=== PATIENT | male | born 1930 | race Caucasian/White ===

== ENCOUNTER 2016-10-23 13:37 | Inpatient (IN) | payer MEDICARE ==
[2016-10-23] VITALS (12 sets, daily range): BP systolic 90–109; BP diastolic 53–69; PULSE 68–137; RESP 20; TEMP 96.4–98.7; O2SAT 94–98
[~2016-10-23 13:37] MED LIST: ATOR10TA PO; DILT31TA PO; IPRA0.02 NEB; LEVO88TA2 PO; LYRI150C PO; METH5SOL3 PO; MUCI600T PO; PARO1TAB72 PO; SPIRCAP INH; ST J81CH PO; SYMB80AE INH
[2016-10-23] MEDS ORDERED: BISA1TAB2 PO (13:49)
[2016-10-23] MEDS ORDERED: BUDE0.5S NEB (13:49)
[2016-10-23] MEDS ORDERED: LYRI50CA PO (13:49)
[2016-10-23] MEDS ORDERED: DILT30TA PO (13:49)
[2016-10-23] MEDS ORDERED: ATOR10TA15 PO (13:49)
[2016-10-23] MEDS ORDERED: SYMB80AE INH (13:49)
[2016-10-23] MEDS ORDERED: ASPI81CH CHEW (13:49)
[2016-10-23] MEDS ORDERED: FEXO1TAB41 PO (13:49)
[2016-10-23] MEDS ORDERED: LEVO88TA2 PO (13:49)
[2016-10-23] MEDS ORDERED: METH5TAB PO (13:49)
[2016-10-23] MEDS ORDERED: PARO20TA2 PO (13:49)
[2016-10-23] MEDS ORDERED: IPRA0.02 NEB (13:49)
[2016-10-23] MEDS ORDERED: SPIRCAP INH (13:49)
[2016-10-23] MEDS ORDERED: SODIUM CHLORIDE 0.9% FLUSH 10 ML FLUSH IVF PRN (14:00)
--- NOTE | 2016-10-23 14:09 | PD ---
HPI Chief Complaint: Respiratory Symptoms Time Seen by Provider: 13:51 Travel History International Travel<30 days: No Contact w/Intl Traveler<30days: No Traveled to known affect area: No History of Present Illness HPI This is an 86-year-old male who has a history of COPD who presents to the emergency department having been found to be in respiratory distress at his [facility]. He was cyanotic with an oxygen saturation in the 70s. He was given thiamine and round by EMS and given 2 breathing treatments and his symptoms improved significantly. Patient reports that he's been short of breath "for a while", for at least the past month, associated with a productive cough with yellow sputum, moderate severity. He uses oxygen at night but not during the daytime. His son has been trying to get him into a pulmonary doctor but he is not established with one yet. He denies any chest pain and he's not been ill with viral symptoms like rhinorrhea, sore throat or chills. PFSH Past Medical History Arthritis: Yes Asthma: No Atrial Fibrillation: Yes (NEW ONSET 11/2013) Autoimmune Disease: No Anxiety: Yes Depression: No Cancer: Yes (PROSTATE CANCER) Cardiac Catheterization: Yes Cardiovascular Problems: Yes (STENT) High Cholesterol: Yes Chemotherapy: No Chest Pain: No Congestive Heart Failure: No COPD: Yes Cerebrovascular Accident: No Coronary Artery Disease: Yes Diabetes: No Diminished Hearing: Yes (AIDE DOESNT WEAR) Endocrine: No GERD: No Genitourinary: Yes Hiatal Hernia: No Immune Disorder: No Kidney Stones: No Musculoskeletal: Yes (LEFT LEG WEAKNESS) Neurologic: No Psychiatric: No Reproductive: No Respiratory: Yes Migraines: No Radiation Therapy: No Renal Failure: No 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) Sickle Cell Disease: No Sleep Apnea: No Thyroid Disease: Yes Ulcer: No Past Surgical History AICD: No Arteriovenous Shunt: No Coronary Stent: Yes Insulin Pump: No Joint Replacement: No Pacemaker: No Other Surgery: Yes (PROSTATE REMOVAL) Social History Alcohol Use: No (QUIT 20 YEARS AGO ) Tobacco Use: Yes (10CIG/DAY) Substance Use: No Allergies-Medications (Allergen,Severity, Reaction): Coded Allergies: Penicillin (Verified Allergy, Severe, A CHILD, 10/23/16) Procaine (Verified Allergy, Unknown, 10/23/16) Uncoded Allergies: BENZATHIN (Allergy, Unknown, 10/23/16) Reported Meds & Prescriptions Reported Meds & Active Scripts Active Azithromycin 250 Mg Tab 250 Mg PO DIRECTED Take 2 tabs (500 mg) on day 1 then 1 tab daily x 4 days. Prednisone 20 Mg Tab 40 Mg PO DAILY 4 Days Reported Lyrica (Pregabalin) 50 Mg Cap 50 Mg PO TID Paroxetine (Paroxetine HCl) 20 Mg Tab 20 Mg PO DAILY Symbicort Inh (Budesonide/Formoterol Fumarate) 80-4.5 Mcg/Act Aero 1 Puff INH Q12HR Atorvastatin (Atorvastatin Calcium) 10 Mg Tab 10 Mg PO HS Methadone (Methadone HCl) 5 Mg Tab 2.5 Mg PO HS Ipratropium Neb (Ipratropium [place]) 0.5 Mg/2.5 Ml Amp 0.5 Mg NEB Q12HR NEB Mucinex Allergy (Fexofenadine HCl) 180 Mg Tab 600 Mg PO BID Eq Gentle Laxative (Bisacodyl) 5 Mg Tab 15 Mg PO DAILY PRN Spiriva Handihaler (Tiotropium Inh) 18 Mcg Cap 18 Mcg INH DAILY 1 capsule = 18 mcg Budesonide Neb 0.5 Mg/2 Ml Neb 0.5 Mg NEB BID Levothyroxine (Levothyroxine Sodium) 88 Mcg Tab 88 Mcg PO DAILY Diltiazem (Diltiazem HCl) 30 Mg Tab 30 Mg PO BID Aspirin 81 Mg Chew 81 Mg CHEW DAILY Review of Systems Except as stated in HPI: all other systems reviewed are Neg Physical Exam Narrative GENERAL: Frail elderly male in no acute distress. SKIN: Warm and dry. HEAD: Atraumatic. Normocephalic. EYES: Pupils equal and round. No injection or drainage. ENT: Moist mucous membranes NECK: Trachea midline. CARDIOVASCULAR: Regular rate and rhythm. No murmur appreciated. RESPIRATORY: Diffuse wheezing with poor air movement, prolonged expiratory phase GASTROINTESTINAL: Abdomen soft, non-tender, nondistended. MUSCULOSKELETAL: No obvious deformities. NEUROLOGICAL: Awake and alert. No obvious cranial nerve deficits. Moving all extremities. PSYCHIATRIC: Appropriate mood and affect; insight and judgment normal. Data Data Last Documented VS Vital Signs Date Time Temp Pulse Resp B/P Pulse Ox O2 Delivery O2 Flow Rate FiO2 10/23/16 15:29 121 20 91/65 95 10/23/16 14:21 Nasal Cannula 2.00 10/23/16 13:39 98.7 Orders Complete Blood Count With Diff (10/23/16 13:58) Comprehensive Metabolic Panel (10/23/16 13:58) Iv Access Insert/Monitor (10/23/16 13:58) Ecg Monitoring (10/23/16 13:58) Oximetry (10/23/16 13:58) Oxygen Administration (10/23/16 13:58) Chest, Single Ap (10/23/16 13:58) Sodium Chloride 0.9% Flush (Ns Flush) (10/23/16 14:00) Albuterol Neb (Albuterol Neb) (10/23/16 14:00) Diltiazem Inj (Cardizem Inj) (10/23/16 15:30) Sodium Chlorid 0.9% 500 Ml Inj (Ns 500 M (10/23/16 15:30) Troponin I (10/23/16 15:30) B-Type Natriuretic Peptide (10/23/16 15:30) Diltiazem Inj (Cardizem Inj) (10/23/16 16:15) Admit Order (Ed Use Only) (10/23/16 16:11) Labs Laboratory Tests Test 10/23/16 14:05 White Blood Count 4.9 TH/MM3 Red Blood Count 4.01 MIL/MM3 Hemoglobin 11.9 GM/DL Hematocrit 36.5 % Mean Corpuscular Volume 91.1 FL Mean Corpuscular Hemoglobin 29.8 PG Mean Corpuscular Hemoglobin 32.7 % Concent Red Cell Distribution Width 13.5 % Platelet Count 114 TH/MM3 Mean Platelet Volume 7.9 FL Neutrophils (%) (Auto) 74.5 % Lymphocytes (%) (Auto) 14.1 % Monocytes (%) (Auto) 10.4 % Eosinophils (%) (Auto) 0.5 % Basophils (%) (Auto) 0.5 % Neutrophils # (Auto) 3.7 TH/MM3 Lymphocytes # (Auto) 0.7 TH/MM3 Monocytes # (Auto) 0.5 TH/MM3 Eosinophils # (Auto) 0.0 TH/MM3 Basophils # (Auto) 0.0 TH/MM3 CBC Comment DIFF FINAL Differential Comment Sodium Level 142 MEQ/L Potassium Level 4.1 MEQ/L Chloride Level 106 MEQ/L Carbon Dioxide Level 26.6 MEQ/L Anion Gap 9 MEQ/L Blood Urea Nitrogen 22 MG/DL Creatinine 0.88 MG/DL Estimat Glomerular Filtration 82 ML/MIN Rate Random Glucose 88 MG/DL Calcium Level 8.4 MG/DL Total Bilirubin 0.6 MG/DL Aspartate Amino Transf 18 U/L (AST/SGOT) Alanine Aminotransferase 14 U/L (ALT/SGPT) Alkaline Phosphatase 82 U/L Troponin I LESS THAN 0.02 NG/ML B-Type Natriuretic Peptide 290 PG/ML Total Protein 6.2 GM/DL Albumin 3.0 GM/DL MDM Medical Decision Making Medical Screen Exam Complete: Yes Emergency Medical Condition: Yes Interpretation(s) Afebrile, no tachycardia, normotensive Mild anemia Mild thrombocytopenia Electrolytes are reassuring Chest x-ray: Small area of nodularity in the right medial lobe requires outpatient CT Differential Diagnosis COPD exacerbation, pneumonia, pleural effusion, bronchitis, pulmonary embolism Narrative Course This is an 86-year-old male who has a history of COPD who wears oxygen in the evenings who presents to the emergency department with increasing shortness of breath and productive cough that's been going on for 1 month with an episode of hypoxia at his assisted living facility. On arrival he was 86% on room air but breathing very comfortably. He is diffusely wheezing. He was given 3 albuterol treatments. Labs are all reassuring. I was hopeful to discharge the patient on 2 L of oxygen however he went into a rapid heart rate in the 150s to 160s. I ordered an EKG which demonstrated atrial fibrillation with rapid ventricular response. Patient was given 10 mg of IV diltiazem and his heart rate improved into the 110s. His blood pressure is in the 90s systolic with a map of 70. I put the patient on diltiazem drip. Patient does have a history of atrial fibrillation in the past noted in 2013. Given the patient's poor rate control in the setting of bronchodilators and his new oxygen requirement I think it's reasonable to admit him for continued pulmonary and cardiac management. Critical Care Narrative Aggregate critical care time was 35 minutes. Time to perform other separately billable procedures was not included in the critical care time. My time did not include minutes spent treating any other patients simultaneously or on activities that did not directly contribute to the patient's treatment. The services I provided to this patient were to treat and/or prevent clinically significant deterioration that could result in: disability, I provided critical care services requiring my management, as noted below: Chart data review, documentation time, medication orders and management, vital sign assessments/reviewing monitor data, ordering and reviewing lab tests, ordering and interpreting/reviewing x-rays and diagnostic studies, care of the patient and discussion of the patient with the admitting physicians. Physician Communication Physician Communication Discussed with Dr. Mabry Diagnosis Primary Impression: COPD exacerbation Admitting Information Admitting Physician Requests: Admit Referrals: Salvador Calderon MD Patient Instructions: General Instructions Additional Instructions: If you develop severe shortness of breath, chest pain, or difficulty breathing return to the emergency department. Stay on your 2 L of oxygen until your symptoms improved. Use albuterol every 4 hours for the next 2 days. Then use as needed for wheezing. Complete your course of steroids. Complete your course of antibiotics. Follow-up with a pulmonary doctor as soon as possible. YOU HAVE AN AREA OF NODULARITY INVOLVING THE MEDIAL RIGHT LOWER LOBE. THIS SHOULD BE FOLLOWED UP BY A CT SCAN AN OUTPATIENT. Med/Other Pt SpecificInfo: Prescription(s) given Scripts Azithromycin 250 Mg Otg114 Mg PO DIRECTED #6 TAB Take 2 tabs (500 mg) on day 1 then 1 tab daily x 4 days. Prov:Therese Cifuentes MD 10/23/16 Prednisone 20 Mg Tab40 Mg PO DAILY 4 Days Prov:Therese Cifuentes MD 10/23/16 Disposition: 01 DISCHARGE HOME Condition: Stable Therese Cifuentes MD Oct 23, 2016 14:09
[2016-10-23 14:15] LABS: AUTOMATED NEUTROPHIL # 3.7 TH/MM3 (1.8-7.7); BASOPHIL % 0.5 % (0.0-2.0); EOSINOPHIL % 0.5 % (0.0-4.0); HEMATOCRIT 36.5 % (39.0-51.0); HEMO FLAGS DIFF FINAL; LYMPH % 14.1 % (9.0-44.0); LYMPHOCYTE # 0.7 TH/MM3 (1.0-4.8); MEAN CELL VOLUME 91.1 FL (80.0-100.0); MEAN CORPUSCULAR HEMOGLOBIN 29.8 PG (27.0-34.0); MEAN CORPUSCULAR HGB CONC 32.7 % (32.0-36.0); MONO % 10.4 % (0.0-8.0); NEUT % 74.5 % (16.0-70.0); PLATELET COUNT 114 TH/MM3 (150-450); RED BLOOD COUNT 4.01 MIL/MM3 (4.50-5.90); RED CELL DISTRIBUTION WIDTH 13.5 % (11.6-17.2); WHITE BLOOD COUNT 4.9 TH/MM3 (4.0-11.0)
[2016-10-23] MEDS: RESP: ALBUTEROL 2.5 MG/3 ML NEB (SCH) INH (14:18)
[2016-10-23 14:26] LABS: CHLORIDE 106 MEQ/L (98-107); POTASSIUM 4.1 MEQ/L (3.5-5.1); SODIUM (NA) 142 MEQ/L (136-145)
[2016-10-23 14:33] LABS: ANION GAP 9 MEQ/L (5-15); BICARBONATE 26.6 MEQ/L (21.0-32.0); BLOOD UREA NITROGEN 22 MG/DL (7-18)
[2016-10-23 14:36] LABS: AST (GOT) 18 U/L (15-37); GLOMERULAR FILTRATION RATE 82 ML/MIN (>89)
[2016-10-23 14:37] LABS: TOTAL BILIRUBIN ADULT 0.6 MG/DL (0.2-1.0)
[2016-10-23 14:39] LABS: ALKALINE PHOSPHATASE 82 U/L (45-117)
--- NOTE | 2016-10-23 14:40 | RADHPO ---
EXAM DATE/TIME: 10/23/2016 14:04 [facility] COMPARISON: CHEST SINGLE AP, April 05, 2016, 13:41. INDICATIONS : Short of breath. MEDICAL HISTORY : Hypercholesterolemia. Carcinoma, prostatic. Emphysema. CAD. A-fib. COPD. Arthritis. SURGICAL HISTORY : Cardiac cath w/ stent placement. Back surgeries. Prostate removal. ENCOUNTER: Initial ACUITY: 1 day PAIN SCORE: 0/10 LOCATION: chest FINDINGS: 2 portable frontal views of the chest show a nodular area of parenchymal density within the medial ri ght lung base. This is a new finding from the prior study. This measures approximately 3 cm in diamet er. The remaining lungs are clear. No effusions. Heart is normal in size. Bony structures are unremar kable. CONCLUSION: Small area of nodularity involving the medial right lower lobe. Differential diagnostic consideration s include rounded atelectasis, pulmonary mass, or developing infiltrate. Short term followup PA and l ateral views of the chest to document resolution versus further characterization with CT suggested. Angelo Escalante Jr., MD on October 23, 2016 at 14:37 Board Certified Radiologist. This report was verified electronically.
[2016-10-23 14:45] LABS: ALT (GPT) 14 U/L (12-78)
[2016-10-23] MEDS ORDERED: AZIT250T3 PO (15:12)
[2016-10-23] MEDS ORDERED: PRED20 PO (15:12)
[2016-10-23] MEDS ORDERED: SODIUM CHLORID 0.9% 500 ML INJ 500 ML IV ONE (15:30)
[2016-10-23] MEDS ORDERED: DILTIAZEM HCL 25 MG/5 ML VIAL IV ONE (15:30)
[2016-10-23] MEDS ORDERED: DILTIAZEM INJ 125 MG in SODIUM CHLORIDE 0.9% INJ 100 ML IV SCH (16:15)
[2016-10-23] MEDS: SODIUM CHLOR 0.9% 1000 ML INJ 1,000 ML IV SCH (16:20)
[2016-10-23] MEDS ORDERED: ONDANSETRON HCL 4 MG/2 ML VIAL IVP PRN (16:30)
[2016-10-23] MEDS ORDERED: MAGNESIUM HYDROXIDE SUSP 30 ML CUP PO PRN (16:30)
[2016-10-23] MEDS ORDERED: NALOXONE HCL 0.4 MG/ML AMP IV PRN (16:30)
[2016-10-23] MEDS ORDERED: ACETAMINOPHEN 325 MG TAB PO PRN (16:30)
[2016-10-23] MEDS ORDERED: IOHEXOL 350 MG/ML 10 ML VIAL (for RAD DIAG) IV ONE (18:10)
--- NOTE | 2016-10-23 18:34 | RADHPO ---
EXAM DATE/TIME: 10/23/2016 18:00 [facility] COMPARISON: No previous studies available for comparison. INDICATIONS : Shortness of breath. IV CONTRAST: 75 cc Omnipaque 350 (iohexol) IV RADIATION DOSE: 7.53 CTDIvol (mGy) MEDICAL HISTORY : Carcinoma, prostate. Chronic obstructive pulmonary disease. Cardiovascular disease SURGICAL HISTORY : None. ENCOUNTER: Initial ACUITY: 4 - 6 months PAIN SCALE: 1/10 LOCATION: Bilateral chest TECHNIQUE: Volumetric scanning of the chest was performed using a pulmonary embolism protocol MIP images were re constructed. Using automated exposure control and adjustment of the mA and/or kV according to patien t size, radiation dose was kept as low as reasonably achievable to obtain optimal diagnostic quality images. FINDINGS: There is no evidence of pulmonary embolism. Diffuse emphysematous changes are noted bilaterally. Th ere is evidence of superimposed patchy infiltrate within the right lower lobe consistent with possibl e pneumonia. Clinical correlation is recommended. No pulmonary nodule or mass is noted. No mediast inal, hilar or axillary lymphadenopathy is noted. Coronary artery calcifications are noted. No pleu ral effusion is noted. An infrarenal abdominal aortic aneurysm is noted and measures 4.2 cm AP x 4.3 cm transverse dimension. Degenerative changes are noted throughout the thoracolumbar spine. There is a right renal cyst measuring 3 cm. CONCLUSION: 1. No evidence of pulmonary embolism. 2. Patchy consolidation within the right lower lobe consistent with possible pneumonia. Clinical co rrelation is recommended. 3. Diffuse emphysematous changes bilaterally. 4. Infrarenal abdominal aortic aneurysm measuring 4.2 cm AP x 4.3 cm transverse dimension. 5. Coronary artery calcifications. 6. 3 cm right renal cyst. 7. Degenerative changes and scoliosis of the thoracolumbar spine. Braxton Natarajan MD on October 23, 2016 at 18:20 Board Certified Radiologist. This report was verified electronically.
--- NOTE | 2016-10-23 22:28 | EKG ---
Date Performed: 10/23/2016 Time Performed: 15:22:38 PTAGE: 86 years EKG: Atrial fibrillation with uncontrolled ventricular response. Septal T wave changes are nonsp ecific Abnormal ECG PREVIOUS TRACING : 04/05/2016 13.09 Compared to the previous tracing Sinus rhythm no longer present DOCTOR: Shandra Doss Interpretating Date/Time 10/23/2016 22:27:16
[2016-10-24] VITALS (7 sets, daily range): BP systolic 98–147; BP diastolic 61–81; PULSE 65–103; RESP 20; TEMP 97.4–98.5; O2SAT 93–97
[2016-10-24] MEDS: RESP: ALBUTEROL 2.5 MG/IPRATROPIUM 0.5 MG NEB (PRN) NEB ×3 (04:12→18:34)
[2016-10-24 06:55] LABS: AUTOMATED NEUTROPHIL # 2.3 TH/MM3 (1.8-7.7); EOSINOPHIL % 0.5 % (0.0-4.0); HEMATOCRIT 36.8 % (39.0-51.0); LYMPH % 7.1 % (9.0-44.0); LYMPHOCYTE # 0.2 TH/MM3 (1.0-4.8); MEAN CELL VOLUME 92.6 FL (80.0-100.0); MEAN CORPUSCULAR HEMOGLOBIN 30.3 PG (27.0-34.0); MEAN CORPUSCULAR HGB CONC 32.7 % (32.0-36.0); MONO % 6.5 % (0.0-8.0); NEUT % 85.9 % (16.0-70.0); PLATELET COUNT 99 TH/MM3 (150-450); RED BLOOD COUNT 3.98 MIL/MM3 (4.50-5.90); RED CELL DISTRIBUTION WIDTH 13.9 % (11.6-17.2); WHITE BLOOD COUNT 2.7 TH/MM3 (4.0-11.0)
[2016-10-24 06:59] LABS: POTASSIUM 4.5 MEQ/L (3.5-5.1)
[2016-10-24 07:05] LABS: BICARBONATE 28.7 MEQ/L (21.0-32.0)
[2016-10-24 07:11] LABS: HEMO FLAGS AUTO DIFF
[2016-10-24] MEDS ORDERED: BISACODYL EC 5 MG TABEC PO PRN ×2 (07:30→11:15)
[2016-10-24 08:13] LABS: PLATELET ESTIMATE SMEAR LOW (NORMAL); PLATELET MORPHOLOGY NORMAL (NORMAL); SCAN/DIFF AUTO DIFF CONFIRMED
[2016-10-24] MEDS: RESP: IPRATROPIUM 0.5 MG/2.5 ML NEB NEB SCH ×2 (08:50→20:35)
[2016-10-24] MEDS: RESP: BUDESONIDE 0.5 MG/2 ML NEB NEB SCH ×2 (08:51→20:35)
[2016-10-24] MEDS ORDERED: predniSONE 20 MG TAB PO SCH (09:00)
[2016-10-24] MEDS ORDERED: PNEUMOCOCCAL POLYVALENT INJ 25 MCG/0.5 ML SYR IM ONE (09:00)
[2016-10-24] MEDS ORDERED: INFLUENZA VIRUS VACCINE (QUADRIVALENT) 0.5 ML SYR IM ONE (09:00)
[2016-10-24] MEDS: BUDESONIDE-FORMOTEROL 80/4.5 MCG INHALER INH SCH ×2 (09:29→21:09)
[2016-10-24] MEDS: DILTIAZEM HCL 30 MG TAB PO SCH ×4 (09:30→21:15)
[2016-10-24] MEDS: PREGABALIN 25 MG CAP PO SCH ×3 (09:30→18:28)
[2016-10-24] MEDS: PARoxetine HCL 20 MG TAB PO SCH (09:31)
[2016-10-24] MEDS: ASPIRIN 81 MG CHEW TAB CHEW SCH (09:31)
[2016-10-24] MEDS: TIOTROPIUM BROMIDE 18 MCG INH INH SCH (09:36)
[2016-10-24] MEDS: LEVOTHYROXINE SODIUM 88 MCG TAB PO SCH (09:36)
--- NOTE | 2016-10-24 09:45 | HHI.HP ---
[facility] Non-Staff Admission Diagnosis copd exacerbation, atrial fibrillation with rvr Diagnoses: (1) COPD exacerbation (2) Coronary artery disease (3) Tobacco abuse (4) Atrial fibrillation with RVR Chief Complaint: Dyspnea Travel History International Travel<30 Days: No Contact w/Intl Traveler <30 Da: No Traveled to Known Affected Are: No History of Present Illness The patient is an 86-year-old male with history of COPD who presented to the emergency department with complaint of worsening shortness of breath. The patient states that his son brought him to the hospital. The ER recommendation shows that the patient was found to be in respiratory distress at his nursing facility. He was noted to be cyanotic and his oxygen saturation was in the 70s. He showed significant clinical improvement in route to the ER with breathing treatments. He reports significant shortness of breath that has worsened over the past year. He uses oxygen intermittently at home. 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 He is feeling somewhat better this morning. Denies chest pain or denies fever, chills, night sweats. Review of Systems Constitutional: DENIES: Fever, Chills, Night Sweats Eyes: DENIES: Blurred vision, Vision loss Ears, nose, mouth, throat: DENIES: Hearing loss Respiratory: COMPLAINS OF: Cough, Wheezing, Shortness of breath, DENIES: Sputum production Cardiovascular: DENIES: Chest pain, Palpitations, Dyspnea on Exertion, Lower Extremity Edema Gastrointestinal: DENIES: Abdominal pain, Constipation, Diarrhea, Nausea, Vomiting Genitourinary: DENIES: Urinary frequency, Urinary incontinence, Urgency, Hematuria, Dysuria, Nocturia Musculoskeletal: DENIES: Joint pain, Muscle aches Integumentary: DENIES: Pruritus, Rash Hematologic/lymphatic: DENIES: Bruising Neurologic: DENIES: Headache Past Family Social History Past Medical History COPD Atrial fibrillation History of prostate cancer Coronary artery disease Hyperlipidemia Anxiety Osteoarthritis Past Surgical History Cardiac catheterization with coronary artery stent placement Prostatectomy Tonsillectomy Reported Medications Azithromycin 250 Mg Tab 250 Mg PO DIRECTED Take 2 tabs (500 mg) on day 1 then 1 tab daily x 4 days. Prednisone 20 Mg Tab 40 Mg PO DAILY 4 Days Lyrica (Pregabalin) 50 Mg Cap 50 Mg PO TID Paroxetine (Paroxetine HCl) 20 Mg Tab 20 Mg PO DAILY Symbicort Inh (Budesonide/Formoterol Fumarate) 80-4.5 Mcg/Act Aero 1 Puff INH Q12HR Atorvastatin (Atorvastatin Calcium) 10 Mg Tab 10 Mg PO HS Methadone (Methadone HCl) 5 Mg Tab 2.5 Mg PO HS Ipratropium Neb (Ipratropium [place]) 0.5 Mg/2.5 Ml Amp 0.5 Mg NEB Q12HR NEB Mucinex Allergy (Fexofenadine HCl) 180 Mg Tab 600 Mg PO BID Eq Gentle Laxative (Bisacodyl) 5 Mg Tab 15 Mg PO DAILY PRN Spiriva Handihaler (Tiotropium Inh) 18 Mcg Cap 18 Mcg INH DAILY 1 capsule = 18 mcg Budesonide Neb 0.5 Mg/2 Ml Neb 0.5 Mg NEB BID Levothyroxine (Levothyroxine Sodium) 88 Mcg Tab 88 Mcg PO DAILY Diltiazem (Diltiazem HCl) 30 Mg Tab 30 Mg PO BID Aspirin 81 Mg Chew 81 Mg CHEW DAILY Allergies: Coded Allergies: Penicillin (Verified Allergy, Severe, A CHILD, 10/23/16) Procaine (Verified Allergy, Unknown, 10/23/16) Uncoded Allergies: BENZATHIN (Allergy, Unknown, 10/23/16) Family History Cancer Social History Patient smokes approximately 10 cigarettes per day. Reports drinking wine occasionally. Denies illicit drug use. Physical Exam Vital Signs Vital Signs Date Time Temp Pulse Resp B/P Pulse Ox O2 Delivery O2 Flow Rate FiO2 10/24/16 08:54 96 Nasal Cannula 2.00 10/24/16 08:00 98.5 103 20 105/74 96 10/24/16 00:00 98.5 65 20 98/61 95 10/23/16 22:13 96.4 80 20 100/65 97 10/23/16 21:00 68 10/23/16 21:00 95 Nasal Cannula 2.00 10/23/16 20:55 98 Nasal Cannula 4.00 10/23/16 20:33 78 102/53 96 Nasal Cannula 2 10/23/16 18:32 113 20 105/69 97 Nasal Cannula 2 10/23/16 17:13 119 20 90/61 97 Nasal Cannula 2 10/23/16 16:18 137 20 92/64 96 Nasal Cannula 2 10/23/16 15:29 121 20 91/65 95 10/23/16 14:58 101 20 104/61 94 10/23/16 14:21 95 Nasal Cannula 2.00 10/23/16 14:08 Nasal Cannula 2 10/23/16 14:08 96 10/23/16 13:39 98.7 88 20 109/65 95 Physical Exam GENERAL: Elderly male in no acute distress. HEENT: Normocephalic, atraumatic. Pupils equal, round and reactive. Extraocular movements intact. No scleral icterus. No injection or drainage. Oropharynx is clear. Mucous membranes are moist. Dentures. CARDIOVASCULAR: Regular rate and rhythm without murmurs, gallops, or rubs. RESPIRATORY: Diffuse expiratory wheeze. Breathing is non-labored. GASTROINTESTINAL: Abdomen soft, non-tender, nondistended. EXTREMITIES: No lower extremity edema. No calf tenderness. SCDs, WILLAM hose. PSYCH: Alert and oriented x 3. Laboratory Laboratory Tests Test 10/23/16 10/24/16 14:05 06:25 White Blood Count 4.9 2.7 Red Blood Count 4.01 3.98 Hemoglobin 11.9 12.0 Hematocrit 36.5 36.8 Mean Corpuscular Volume 91.1 92.6 Mean Corpuscular Hemoglobin 29.8 30.3 Mean Corpuscular Hemoglobin 32.7 32.7 Concent Red Cell Distribution Width 13.5 13.9 Platelet Count 114 99 Mean Platelet Volume 7.9 8.2 Neutrophils (%) (Auto) 74.5 85.9 Lymphocytes (%) (Auto) 14.1 7.1 Monocytes (%) (Auto) 10.4 6.5 Eosinophils (%) (Auto) 0.5 0.5 Basophils (%) (Auto) 0.5 0.0 Neutrophils # (Auto) 3.7 2.3 Lymphocytes # (Auto) 0.7 0.2 Monocytes # (Auto) 0.5 0.2 Eosinophils # (Auto) 0.0 0.0 Basophils # (Auto) 0.0 0.0 CBC Comment DIFF FINAL AUTO DIFF Differential Comment AUTO DIFF CONFIRMED Sodium Level 142 141 Potassium Level 4.1 4.5 Chloride Level 106 106 Carbon Dioxide Level 26.6 28.7 Anion Gap 9 6 Blood Urea Nitrogen 22 21 Creatinine 0.88 0.75 Estimat Glomerular Filtration 82 99 Rate Random Glucose 88 167 Calcium Level 8.4 8.3 Total Bilirubin 0.6 Aspartate Amino Transf 18 (AST/SGOT) Alanine Aminotransferase 14 (ALT/SGPT) Alkaline Phosphatase 82 Troponin I LESS THAN 0.02 B-Type Natriuretic Peptide 290 Total Protein 6.2 Albumin 3.0 Platelet Estimate LOW Platelet Morphology Comment NORMAL Result Diagram: 10/24/16 0625 10/24/16 0625 Imaging Last Impressions Chest X-Ray 10/23/16 1358 Signed Impressions: Service Date/Time: Sunday, October 23, 2016 14:04 - CONCLUSION: Small area of nodularity involving the medial right lower lobe. Differential diagnostic considerations include rounded atelectasis, pulmonary mass, or developing infiltrate. Short term followup PA and lateral views of the chest to document resolution versus further characterization with CT suggested. Angelo Escalante Jr., MD CT Angiography 10/23/16 0000 Signed Impressions: Service Date/Time: Sunday, October 23, 2016 18:00 - CONCLUSION: 1. No evidence of pulmonary embolism. 2. Patchy consolidation within the right lower lobe consistent with possible pneumonia. Clinical correlation is recommended. 3. Diffuse emphysematous changes bilaterally. 4. Infrarenal abdominal aortic aneurysm measuring 4.2 cm AP x 4.3 cm transverse dimension. 5. Coronary artery calcifications. 6. 3 cm right renal cyst. 7. Degenerative changes and scoliosis of the thoracolumbar spine. Braxton Natarajan MD Assessment and Plan Assessment and Plan 1. COPD exacerbation: Continue bronchodilators, supplemental oxygen, Symbicort, Spiriva, prednisone. Consult pulmonology. 2. Atrial fibrillation with RVR: Heart rate is controlled. Now off Cardizem drip. Start oral Cardizem. Monitor on telemetry. 3. Coronary artery disease: Currently asymptomatic. Patient has history of coronary artery stent. Continue aspirin. 4. Hyperlipidemia: Continue statin. 5. Hypothyroidism: Continue Synthroid. 6. Anxiety: Continue Paxil. 7. DVT prophylaxis: SCDs, WILLAM hose, heparin. Shamar Mabry MD Oct 24, 2016 09:44
[2016-10-24] MEDS: HEPARIN SODIUM - SQ 10,000 UNITS/ML VIAL SQ SCH ×2 (10:01→21:10)
[2016-10-24] MEDS: SODIUM CHLOR 0.9% 1000 ML INJ 1,000 ML IV SCH (12:20)
[2016-10-24] MEDS ORDERED: NICOTINE 7 MG/24 HR PATCH T-DERMAL ONE (18:15)
[2016-10-24] MEDS: LEVOFLOXACIN 750 MG PREMIX INJ 150 ML IV SCH (18:27)
--- NOTE | 2016-10-24 20:59 | MB ---
cc: DOMINGO MABRY JOHN DATE OF CONSULTATION: 10/24/2016 REASON FOR CONSULTATION: COPD and pneumonia. PRESENT ILLNESS This is an 86 year-old white male with a history of COPD and history of chronic smoking, was admitted with shortness of breath, low oxygen saturation and wheezing. The patient has home oxygen at [id number] liters. He does not use it regularly and he also has been smoking at least ten cigarettes a day. He has been bringing up some whitish yellow mucous, but denies any hemoptysis, denies fever or chills. CTA of the chest was done which demonstrated no pulmonary emboli but did show patchy right lower lobe infiltrate and emphysematous changes and abdominal aortic aneurysm. The patient also had a renal cyst. He has arthritis of his extremities and denied any leg swelling. PAST HISTORY Past history includes history of COPD and emphysema. Prior history of coronary artery disease, atrial fibrillation. History of hyperlipidemia, history of osteoarthritis. He has had a cardiac catheterization and coronary artery stenting. Prostatectomy for prostate cancer. Lumbar laminectomy at L3-L4, L4-L5 for disc disease. Tonsillectomy remotely. HABITS: The patient smokes half to one pack per day for over 65 years, continues to smoke. Alcohol use moderate. ALLERGIES: PENICILLIN PROCAINE FAMILY HISTORY: Significant for cancer in both parents. SYSTEM REVIEW: The patient has lost weight. He has headaches. He has postnasal drip. He has wheezing and chest congestion, epigastric distress. Denies nausea and vomiting. He has no leg swelling. He has had some skin lesions. Denies depression or anxiety. The remainder of system review as in present complaint. PHYSICAL EXAMINATION This elderly man who is thinly built, alert and oriented. VITAL SIGNS: Blood pressure 105/60, pulse is 100, respiratory rate 20, temperature 97.2. HEENT: Head normocephalic. Pupils reactive. Tongue is moist. Throat was clear. Neck: Supple. No venous distension or thyromegaly. Chest: Equal movements with diffuse wheezes throughout both lung castro. Prolonged expirations. Occasional crackles at the lung bases. Heart sounds are irregular S1-S2. No murmur. Abdomen is soft, protuberant. No masses, no organomegaly or tenderness. Extremities: Keratotic skin lesions and diminished peripheral pulses. Reflexes 1+ with no gross motor deficits. Neurologic: Cranial nerves are intact. Rectal: Exam is deferred. IMPRESSION 1. Right basilar pneumonia with hypoxemia. 2. COPD with chronic bronchitis and emphysema. 3. Atrial fibrillation with RVR resolved. 4. Hyperlipidemia and hypertension. 5. Nicotine dependency. PLAN The patient has been placed on Levaquin 750 mg IV daily, nebulized DuoNeb solution q.i.d. and also on Mucinex 600 mg b.i.d. The patient will be sent for a pulmonary function study and nicotine patch added at 7 milligrams for 24 hours. Follow up chest x-ray to be done and O2 will be placed at two liters nasal cannula. Thank you, Dr. Mabry, for this consultation. MD CHEY Monterroso/BIRD /6:02 PM /7:46 PM
[2016-10-24] MEDS: METHADONE HCL 10 MG TAB PO SCH (21:12)
[2016-10-24] MEDS: guaiFENesin E.R. 600 MG TAB PO SCH (21:14)
[2016-10-24] MEDS: ATORVASTATIN 10 MG TAB PO SCH (21:14)
[2016-10-24] MEDS: methylPREDNISolone SOD SUCC 40 MG/1 ML VIAL IV PUSH SCH (21:16)
[2016-10-25] VITALS (9 sets, daily range): BP systolic 102–130; BP diastolic 72–87; PULSE 69–126; RESP 18–20; TEMP 97–98; O2SAT 95–97
[2016-10-25 05:19] LABS: AUTOMATED NEUTROPHIL # 7.3 TH/MM3 (1.8-7.7); BASOPHIL % 0.2 % (0.0-2.0); HEMATOCRIT 35.7 % (39.0-51.0); HEMO FLAGS DIFF FINAL; LYMPH % 3.1 % (9.0-44.0); LYMPHOCYTE # 0.2 TH/MM3 (1.0-4.8); MEAN CELL VOLUME 91.3 FL (80.0-100.0); MEAN CORPUSCULAR HEMOGLOBIN 29.9 PG (27.0-34.0); MEAN CORPUSCULAR HGB CONC 32.8 % (32.0-36.0); MONO % 2.2 % (0.0-8.0); NEUT % 94.5 % (16.0-70.0); PLATELET COUNT 108 TH/MM3 (150-450); RED BLOOD COUNT 3.91 MIL/MM3 (4.50-5.90); RED CELL DISTRIBUTION WIDTH 13.8 % (11.6-17.2); WHITE BLOOD COUNT 7.7 TH/MM3 (4.0-11.0)
[2016-10-25 05:35] LABS: POTASSIUM 4.4 MEQ/L (3.5-5.1)
[2016-10-25 05:40] LABS: BICARBONATE 29.6 MEQ/L (21.0-32.0)
[2016-10-25] MEDS: methylPREDNISolone SOD SUCC 40 MG/1 ML VIAL IV PUSH SCH ×3 (06:15→22:05)
[2016-10-25] MEDS: LEVOTHYROXINE SODIUM 88 MCG TAB PO SCH (06:15)
[2016-10-25] MEDS: RESP: IPRATROPIUM 0.5 MG/2.5 ML NEB NEB SCH ×2 (08:00→20:00)
[2016-10-25] MEDS: ASPIRIN 81 MG CHEW TAB CHEW SCH (08:05)
[2016-10-25] MEDS: PREGABALIN 25 MG CAP PO SCH ×3 (08:05→17:07)
[2016-10-25] MEDS: BUDESONIDE-FORMOTEROL 80/4.5 MCG INHALER INH SCH ×2 (08:05→22:04)
[2016-10-25] MEDS: PARoxetine HCL 20 MG TAB PO SCH (08:05)
[2016-10-25] MEDS: guaiFENesin E.R. 600 MG TAB PO SCH ×2 (08:05→22:05)
[2016-10-25] MEDS: DILTIAZEM HCL 30 MG TAB PO SCH ×4 (08:06→22:05)
[2016-10-25] MEDS: HEPARIN SODIUM - SQ 10,000 UNITS/ML VIAL SQ SCH ×2 (08:06→22:06)
[2016-10-25] MEDS: TIOTROPIUM BROMIDE 18 MCG INH INH SCH (08:09)
[2016-10-25] MEDS: SODIUM CHLOR 0.9% 1000 ML INJ 1,000 ML IV SCH (08:09)
[2016-10-25] MEDS: RESP: BUDESONIDE 0.5 MG/2 ML NEB NEB SCH ×2 (09:52→20:01)
[2016-10-25] MEDS: RESP: ALBUTEROL 2.5 MG/IPRATROPIUM 0.5 MG NEB (PRN) NEB (09:52)
--- NOTE | 2016-10-25 11:56 | HHI.PR ---
Subjective Remarks Patient states that he is feeling much improved and dyspnea is back to baseline. He has been getting up on his own. He states that his upper back is a little sore from the way he is been laying in bed. Objective Vitals Vital Signs Date Time Temp Pulse Resp B/P Pulse Ox O2 Delivery O2 Flow Rate FiO2 10/25/16 09:45 96 Nasal Cannula 2.00 10/25/16 08:10 97 Nasal Cannula 3.00 10/25/16 08:00 97.0 126 18 121/87 95 10/25/16 04:00 97.5 81 20 126/72 95 10/25/16 00:00 97.6 105 20 102/76 97 10/24/16 20:35 96 Nasal Cannula 2.00 10/24/16 20:00 82 10/24/16 20:00 97 Nasal Cannula 2.00 Humidified 10/24/16 20:00 97.4 71 20 108/70 97 10/24/16 16:00 98.0 86 20 112/73 97 10/24/16 12:00 98.2 78 20 106/69 97 I/O 10/24/16 10/24/16 10/24/16 10/25/16 10/25/16 10/25/16 07:00 15:00 23:00 07:00 15:00 23:00 Intake Total 379 ml 1020 ml 799 ml 580 ml Output Total 650 ml Balance 379 ml 1020 ml 799 ml -70 ml Intake Oral 1020 ml 240 ml 120 ml IV Total 379 ml 559 ml 460 ml Output Urine Total 650 ml # Voids 4 1 2 # Bowel Movements 2 0 0 Result Diagram: 10/25/16 0503 10/25/16 0503 Objective Remarks GENERAL: Well-nourished, well-developed pleasant elderly male patient. SKIN: Warm and dry. HEAD: Normocephalic. EYES: No scleral icterus. No injection or drainage. NECK: Supple, trachea midline. No JVD or lymphadenopathy. CARDIOVASCULAR: Regular rate and rhythm without murmurs, gallops, or rubs. RESPIRATORY: Breath sounds equal bilaterally with scant end expiratory wheezes at the bases. No accessory muscle use on nasal cannula. GASTROINTESTINAL: Abdomen soft, non-tender, nondistended. EXTREMITIES: No cyanosis, or edema. NEUROLOGICAL: Awake, alert, and oriented x 3. Non-focal. A/P Problem List: (1) COPD exacerbation ICD Code: J44.1 Status: Acute (2) Coronary artery disease ICD Code: I25.10 Status: Acute (3) Tobacco abuse ICD Code: Z72.0 Status: Acute (4) Atrial fibrillation with RVR ICD Code: I48.91 Status: Acute Assessment and Plan -COPD exacerbation - he had hypoxia at the nursing facility, now stable on 2 L nasal cannula. Continue steroids, nebulizers. Appears clinically improved. Appreciate pulmonology input. -Right lower lobe pneumonia. Continue Levaquin. Improving. -Chronic respiratory failure on 2.5 L nasal cannula oxygen continuously. Continue oxygen. -4.3 cm abdominal aortic aneurysm - follow-up outpatient with primary care physician. - Atrial fibrillation with RVR: Heart rate is improved. Now off Cardizem drip. Cont oral Cardizem. Monitor on telemetry. -Coronary artery disease: Currently asymptomatic. Patient has history of coronary artery stent. Continue aspirin. -Hyperlipidemia: Continue statin. -Hypothyroidism: Continue Synthroid. -Anxiety: Continue Paxil. -Neuropathy and chronic pain. Continue Lyrica and methadone 2.5 mg at bedtime. - DVT prophylaxis: SCDs, WILLAM callahan, heparin subcutaneous. Sandra Lopez MD Oct 25, 2016 11:56
[2016-10-25] MEDS: LEVOFLOXACIN 750 MG PREMIX INJ 150 ML IV SCH (17:07)
--- NOTE | 2016-10-25 20:06 | HHI.PR ---
Subjective Remarks Feels better. On O2 2L. Cough is less . No fever Objective Vital Signs Date Time Temp Pulse Resp B/P Pulse Ox O2 Delivery O2 Flow Rate FiO2 10/25/16 20:03 96 Nasal Cannula 2.00 10/25/16 16:00 97.3 88 18 130/73 96 10/25/16 12:00 97.2 81 18 126/73 96 10/25/16 09:45 96 Nasal Cannula 2.00 10/25/16 08:10 97 Nasal Cannula 3.00 10/25/16 08:00 97.0 126 18 121/87 95 10/25/16 04:00 97.5 81 20 126/72 95 10/25/16 00:00 97.6 105 20 102/76 97 10/24/16 20:35 96 Nasal Cannula 2.00 I/O 10/24/16 10/24/16 10/24/16 10/25/16 10/25/16 10/25/16 07:00 15:00 23:00 07:00 15:00 23:00 Intake Total 379 ml 1020 ml 799 ml 580 ml 388 ml 481 ml Output Total 650 ml 300 ml Balance 379 ml 1020 ml 799 ml -70 ml 388 ml 181 ml Intake Oral 1020 ml 240 ml 120 ml 481 ml IV Total 379 ml 559 ml 460 ml 388 ml Output Urine Total 650 ml 300 ml # Voids 4 1 2 # Bowel Movements 2 0 0 Result Diagram: 10/25/16 0503 10/25/16 0503 Objective Remarks This elderly man who is thinly built, alert and oriented. HEENT: Head normocephalic. Pupils reactive. Tongue is moist. Throat was clear. Neck: Supple. No venous distension or thyromegaly. Chest: Equal movements with wheezes throughout both lung castro. Prolonged expirations. Occasional crackles at the lung bases. Heart sounds are irregular S1-S2. No murmur. Abdomen is soft, protuberant. No masses, no organomegaly or tenderness. Extremities: Keratotic skin lesions and diminished peripheral pulses. Reflexes 1+ with no gross motor deficits. Neurologic: Cranial nerves are intact. Rectal: Exam is deferred. Assessment and Plan Assessment and Plan IMPRESSION 1. Right basilar pneumonia with hypoxemia. 2. COPD with chronic bronchitis and emphysema. 3. Atrial fibrillation with RVR resolved. 4. Hyperlipidemia and hypertension. 5. Nicotine dependency. Plan : 1. O2 at 2 L. 2. taper solumedrol to 40 mg bid in am. 3. Continue levaquin and switch to PO in am. 4. BMP ,CXR in am. 5. PFT at Bedside Salvador Calderon MD Oct 25, 2016 20:06
[2016-10-25] MEDS: ATORVASTATIN 10 MG TAB PO SCH (22:05)
[2016-10-25] MEDS: METHADONE HCL 10 MG TAB PO SCH (22:07)
[2016-10-26] VITALS (11 sets, daily range): BP systolic 93–130; BP diastolic 61–74; PULSE 67–100; RESP 18–22; TEMP 96.3–98.2; O2SAT 95–97
--- NOTE | 2016-10-26 06:04 | RADHPO ---
EXAM DATE/TIME: 10/26/2016 05:34 [facility] COMPARISON: CT PULMONARY ANGIOGRAM, October 23, 2016, 18:00. CHEST SINGLE AP, October 23, 2016, 14:04. INDICATIONS : Shortness of breath MEDICAL HISTORY : Hypercholesterolemia. Carcinoma, prostatic. Emphysema. CAD. A-fib. COPD. Arthritis SURGICAL HISTORY : Cardiac cath w/ stent placement. Back surgeries. Prostate removal. ENCOUNTER: Subsequent ACUITY: 4 - 6 days PAIN SCORE: 0/10 LOCATION: Bilateral chest FINDINGS: 2 AP views of the chest demonstrate a normal-sized cardiac silhouette with calcification of the aorta . There is improved aeration at the right lung base. No definite effusion, consolidation, or pneumoth orax is visualized. The bones and soft tissues demonstrate no acute finding. CONCLUSION: Improved aeration at the right lung base. Otherwise, no acute finding is appreciated. Navdeep Brink MD on October 26, 2016 at 6:02 Board Certified Radiologist. This report was verified electronically.
[2016-10-26] MEDS: LEVOTHYROXINE SODIUM 88 MCG TAB PO SCH (06:05)
[2016-10-26] MEDS: methylPREDNISolone SOD SUCC 40 MG/1 ML VIAL IV PUSH SCH ×2 (06:05→14:04)
[2016-10-26] MEDS: RESP: BUDESONIDE 0.5 MG/2 ML NEB NEB SCH ×2 (07:35→20:17)
[2016-10-26] MEDS: RESP: IPRATROPIUM 0.5 MG/2.5 ML NEB NEB SCH ×2 (07:36→20:17)
[2016-10-26] MEDS: TIOTROPIUM BROMIDE 18 MCG INH INH SCH (09:00)
[2016-10-26] MEDS: BUDESONIDE-FORMOTEROL 80/4.5 MCG INHALER INH SCH ×2 (09:56→21:35)
[2016-10-26] MEDS: ASPIRIN 81 MG CHEW TAB CHEW SCH (09:57)
[2016-10-26] MEDS: guaiFENesin E.R. 600 MG TAB PO SCH ×2 (09:57→19:52)
[2016-10-26] MEDS: PARoxetine HCL 20 MG TAB PO SCH (09:57)
[2016-10-26] MEDS: DILTIAZEM HCL 30 MG TAB PO SCH ×4 (09:57→19:54)
[2016-10-26] MEDS: PREGABALIN 25 MG CAP PO SCH ×3 (09:57→18:00)
[2016-10-26] MEDS: HEPARIN SODIUM - SQ 10,000 UNITS/ML VIAL SQ SCH ×2 (09:59→19:54)
--- NOTE | 2016-10-26 16:30 | HHI.PR ---
Subjective Remarks Patient denies any dyspnea. He states he's feeling much better. He is hoping to go home today or tomorrow back to the assisted living facility. Objective Vitals Vital Signs Date Time Temp Pulse Resp B/P Pulse Ox O2 Delivery O2 Flow Rate FiO2 10/26/16 14:07 18 10/26/16 13:51 Nasal Cannula 2.00 10/26/16 08:00 98.1 80 18 128/70 95 10/26/16 07:39 96 Nasal Cannula 2.00 10/26/16 06:59 67 10/26/16 04:00 97.4 100 20 103/61 96 10/26/16 03:25 87 10/26/16 00:00 96.3 89 20 93/69 96 10/25/16 21:45 110 10/25/16 20:03 96 Nasal Cannula 2.00 10/25/16 20:00 96 Nasal Cannula 2.00 Humidified 10/25/16 20:00 69 10/25/16 20:00 98.0 74 20 116/78 96 I/O 10/25/16 10/25/16 10/25/16 10/26/16 10/26/16 10/26/16 07:00 15:00 23:00 07:00 15:00 23:00 Intake Total 580 ml 388 ml 481 ml 60 ml Output Total 650 ml 300 ml 1400 ml Balance -70 ml 388 ml 181 ml -1340 ml Intake Oral 120 ml 481 ml 60 ml IV Total 460 ml 388 ml Output Urine Total 650 ml 300 ml 1400 ml # Voids 2 6 # Bowel Movements 0 0 Result Diagram: 10/25/16 0503 10/25/16 0503 Objective Remarks GENERAL: Well-nourished, well-developed pleasant elderly male patient. SKIN: Warm and dry. HEAD: Normocephalic. EYES: No scleral icterus. No injection or drainage. NECK: Supple, trachea midline. No JVD or lymphadenopathy. CARDIOVASCULAR: Regular rate and rhythm without murmurs, gallops, or rubs. RESPIRATORY: Breath sounds equal bilaterally with scant end expiratory wheezes at the bases. No accessory muscle use on nasal cannula. GASTROINTESTINAL: Abdomen soft, non-tender, nondistended. EXTREMITIES: No cyanosis, or edema. NEUROLOGICAL: Awake, alert, and oriented x 3. Non-focal. A/P Problem List: (1) COPD exacerbation ICD Code: J44.1 Status: Acute (2) Coronary artery disease ICD Code: I25.10 Status: Acute (3) Tobacco abuse ICD Code: Z72.0 Status: Acute (4) Atrial fibrillation with RVR ICD Code: I48.91 Status: Acute Assessment and Plan -COPD exacerbation - he had hypoxia at the nursing facility, now stable on 2 L nasal cannula. Continue steroids, nebulizers. Appears clinically improved. Appreciate pulmonology input. -Weaned to prednisone 20 mg by mouth twice a day. -Right lower lobe pneumonia. Continue Levaquin - switch to by mouth route today.. Improving. -Chronic respiratory failure on 2.5 L nasal cannula oxygen continuously. Continue oxygen. -4.3 cm abdominal aortic aneurysm - follow-up outpatient with primary care physician. - Atrial fibrillation with RVR: Heart rate is improved. Now off Cardizem drip. Cont oral Cardizem - switch to long-acting form tomorrow morning. Monitor on telemetry. -Coronary artery disease: Currently asymptomatic. Patient has history of coronary artery stent. Continue aspirin. -Hyperlipidemia: Continue statin. -Hypothyroidism: Continue Synthroid. -Anxiety: Continue Paxil. -Neuropathy and chronic pain. Continue Lyrica and methadone 2.5 mg at bedtime. - DVT prophylaxis: SCDs, WILLAM lisae, heparin subcutaneous. Discharge Planning Discharge to assisted living facility tomorrow with home health care, pending PT evaluation which has been ordered. Sandra Lopez MD Oct 26, 2016 16:30
--- NOTE | 2016-10-26 16:36 | HHI.FF ---
Face to Face Verification Diagnosis: (1) Atrial fibrillation with RVR (2) COPD exacerbation (3) Community acquired pneumonia Physical Therapy Order: Evaluate and Treat Home Health Nursing Order: Oxygen administration education Medication education-adverse effect Nursing assessment with vital signs I have seen patient Navdeep AdamsJr on 10/26/16. My clinical findings support the need for the requested home health care services because: Patient has SOB Deconditioned w/ increased weakness Need for psychosocial assistance I certify that my clinical findings support that this patient is homebound because: Hx COPD- exertion dyspnea/weakness Need for psychosocial assistance Snadra Lopez MD Oct 26, 2016 16:36
[2016-10-26] MEDS: LEVOFLOXACIN 750 MG TAB PO SCH (17:58)
[2016-10-26] MEDS: METHADONE HCL 10 MG TAB PO SCH (19:54)
[2016-10-26] MEDS: predniSONE 20 MG TAB PO SCH (19:54)
--- NOTE | 2016-10-26 19:56 | HHI.PR ---
Subjective Remarks Improved further. On O2 2L. No fever. Still on IV antibiotics Objective Vital Signs Date Time Temp Pulse Resp B/P Pulse Ox O2 Delivery O2 Flow Rate FiO2 10/26/16 19:20 18 10/26/16 16:00 98.2 80 18 122/72 96 10/26/16 13:51 Nasal Cannula 2.00 10/26/16 12:00 98.0 80 18 130/72 96 10/26/16 08:00 98.1 80 18 128/70 95 10/26/16 07:39 96 Nasal Cannula 2.00 10/26/16 06:59 67 10/26/16 04:00 97.4 100 20 103/61 96 10/26/16 03:25 87 10/26/16 00:00 96.3 89 20 93/69 96 10/25/16 21:45 110 10/25/16 20:03 96 Nasal Cannula 2.00 10/25/16 20:00 96 Nasal Cannula 2.00 Humidified 10/25/16 20:00 69 10/25/16 20:00 98.0 74 20 116/78 96 I/O 10/25/16 10/25/16 10/25/16 10/26/16 10/26/16 10/26/16 07:00 15:00 23:00 07:00 15:00 23:00 Intake Total 580 ml 388 ml 481 ml 60 ml 360 ml Output Total 650 ml 300 ml 1400 ml Balance -70 ml 388 ml 181 ml -1340 ml 360 ml Intake Oral 120 ml 481 ml 60 ml 360 ml IV Total 460 ml 388 ml Output Urine Total 650 ml 300 ml 1400 ml # Voids 2 6 # Bowel Movements 0 0 Result Diagram: 10/25/16 0503 10/25/16 0503 Objective Remarks This elderly man who is thinly built, alert and oriented. HEENT: Head normocephalic. Pupils reactive. Tongue is moist. Throat was clear. Neck: Supple. No venous distension or thyromegaly. Chest: Equal movements with wheezes over both lung castro. Prolonged expirations. Occasional crackles at the lung bases. Heart sounds are irregular S1-S2. No murmur. Abdomen is soft, protuberant. No masses, no organomegaly or tenderness. Extremities: Keratotic skin lesions and diminished peripheral pulses. Reflexes 1+ with no gross motor deficits. Neurologic: Cranial nerves are intact. Rectal: Exam is deferred. Assessment and Plan Assessment and Plan IMPRESSION 1. Right basilar pneumonia with hypoxemia. 2. COPD with chronic bronchitis and emphysema. 3. Atrial fibrillation with RVR resolved. 4. Hyperlipidemia and hypertension. 5. Nicotine dependency. Plan : 1. O2 at 2 L. 2. Cont solumedrol 40 mg bid and switch to Prednisone 20 mg bid in am 3. Continue levaquin PO 4. BMP ,CBC in am. 5. Home on O2 2L Salvador Calderon MD Oct 26, 2016 19:56
[2016-10-26] MEDS: ATORVASTATIN 10 MG TAB PO SCH (19:58)
[2016-10-27 00:29] VITALS: BP 133/84; PULSE 71; RESP 22; TEMP 96.5; O2SAT 93
[2016-10-27 04:29] VITALS: BP 116/67; PULSE 78; RESP 20; TEMP 97.8; O2SAT 95
[2016-10-27] MEDS: LEVOTHYROXINE SODIUM 88 MCG TAB PO SCH (05:54)
[2016-10-27] MEDS: RESP: BUDESONIDE 0.5 MG/2 ML NEB NEB SCH (07:33)
[2016-10-27] MEDS: RESP: IPRATROPIUM 0.5 MG/2.5 ML NEB NEB SCH (07:34)
[2016-10-27 07:38] VITALS: O2SAT 96
[2016-10-27 08:00] VITALS: BP 135/85; PULSE 130; PULSE 89; RESP 19; TEMP 97.7; O2SAT 93
[2016-10-27] MEDS: BUDESONIDE-FORMOTEROL 80/4.5 MCG INHALER INH SCH (08:30)
[2016-10-27] MEDS: predniSONE 20 MG TAB PO SCH (08:31)
[2016-10-27] MEDS: guaiFENesin E.R. 600 MG TAB PO SCH (08:31)
[2016-10-27] MEDS: PREGABALIN 25 MG CAP PO SCH ×3 (08:31→19:02)
[2016-10-27] MEDS: ASPIRIN 81 MG CHEW TAB CHEW SCH (08:31)
[2016-10-27] MEDS: HEPARIN SODIUM - SQ 10,000 UNITS/ML VIAL SQ SCH (08:33)
[2016-10-27] MEDS: TIOTROPIUM BROMIDE 18 MCG INH INH SCH (08:34)
[2016-10-27] MEDS: PARoxetine HCL 20 MG TAB PO SCH (08:40)
[2016-10-27] MEDS ORDERED: DILTIAZEM-CD 120 MG CAP ER PO SCH (09:00)
--- NOTE | 2016-10-27 12:13 | HHI.DS ---
Discharge Summary Admission Date Oct 23, 2016 at 16:12 Discharge Date: Oct 27, 2016 Admitting Diagnosis copd exacerbation, atrial fibrillation with rvr (1) COPD exacerbation ICD Code: J44.1 (2) Coronary artery disease ICD Code: I25.10 (3) Tobacco abuse ICD Code: Z72.0 (4) Atrial fibrillation with RVR ICD Code: I48.91 (5) Chronic respiratory failure ICD Code: J96.10 (6) Community acquired pneumonia ICD Code: J18.9 Procedures None Brief History - From Admission The patient is an 86-year-old male with history of COPD who presented to the emergency department with complaint of worsening shortness of breath. The patient states that his son brought him to the hospital. The ER recommendation shows that the patient was found to be in respiratory distress at his nursing facility. He was noted to be cyanotic and his oxygen saturation was in the 70s. He showed significant clinical improvement in route to the ER with breathing treatments. He reports significant shortness of breath that has worsened over the past year. He uses oxygen intermittently at home. 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 He is feeling somewhat better this morning. Denies chest pain or denies fever, chills, night sweats. CBC/BMP: 10/25/16 0503 10/25/16 0503 Significant Findings Laboratory Tests Test 10/25/16 05:03 Red Blood Count 3.91 MIL/MM3 (4.50-5.90) Hemoglobin 11.7 GM/DL (13.0-17.0) Hematocrit 35.7 % (39.0-51.0) Platelet Count 108 TH/MM3 (150-450) Neutrophils (%) (Auto) 94.5 % (16.0-70.0) Lymphocytes (%) (Auto) 3.1 % (9.0-44.0) Lymphocytes # (Auto) 0.2 TH/MM3 (1.0-4.8) Chloride Level 108 MEQ/L (98-107) Blood Urea Nitrogen 24 MG/DL (7-18) Estimat Glomerular Filtration 83 ML/MIN (>89) Rate Random Glucose 161 MG/DL (74-106) Calcium Level 8.4 MG/DL (8.5-10.1) PE at Discharge GENERAL: Well-nourished, well-developed pleasant elderly male patient. SKIN: Warm and dry. HEAD: Normocephalic. EYES: No scleral icterus. No injection or drainage. NECK: Supple, trachea midline. No JVD or lymphadenopathy. CARDIOVASCULAR: Regular rate and rhythm without murmurs, gallops, or rubs. RESPIRATORY: Breath sounds equal bilaterally with scant end expiratory wheezes at the bases. No accessory muscle use on nasal cannula. GASTROINTESTINAL: Abdomen soft, non-tender, nondistended. EXTREMITIES: No cyanosis, or edema. NEUROLOGICAL: Awake, alert, and oriented x 3. Non-focal. Patient able to get up from bed and ambulate independently around the room. Observed with nurse Kay. Hospital Course -COPD exacerbation - he had hypoxia at the nursing facility, now stable on 2 L nasal cannula which he is on chronically. Continue steroids, nebulizers. Appears clinically improved. Appreciate pulmonology input. -Weaned to prednisone 20 mg by mouth twice a day. Medrol Dosepak at discharge. -Right lower lobe pneumonia. Improving. Continue Levaquin course. -Chronic respiratory failure on 2.5 L nasal cannula oxygen continuously. Continue oxygen. -4.3 cm abdominal aortic aneurysm - follow-up outpatient with primary care physician. - Atrial fibrillation with RVR: Heart rate now controlled on by mouth Cardizem. Switch to long-acting form of oral Cardizem. -Coronary artery disease: Currently asymptomatic. Patient has history of coronary artery stent. Continue aspirin. -Hyperlipidemia: Continue statin. -Hypothyroidism: Continue Synthroid. -Anxiety: Continue Paxil. -Neuropathy and chronic pain. Continue Lyrica and methadone 2.5 mg at bedtime. Pt Condition on Discharge: Stable Discharge Disposition: [facility] with [facility] Discharge Time: > 30 minutes Discharge Instructions DIET: Follow Instructions for: Heart Healthy Diet New Medications: Methylprednisolone Dosepak (Medrol Dosepak) 4 Mg Dspk 4 MG PO DIRECTED Per Pharmacist direction #1 Ref 0 DSPK Oxygen tank (Oxygen tank) 1 Ea Tank 2 LITER BIRD.CANULA CONTINUOUS Oxygen Concentrator Portable Gaseous 2 L/min via Nasal Cannula Continuous For 99 months HYPOXEMIA PREVENTION #2 CYLINDER Diltiazem CD 24 HR (Cardizem CD 24 HR) 120 Mg Caper 120 MG PO DAILY control heart rate #30 CAP Levofloxacin (Levaquin) 750 Mg Tab 750 MG PO DAILY@17 Infection #5 TAB Continued Medications: Aspirin (Aspirin) 81 Mg Chew 81 MG CHEW DAILY Ref 0 TAB Atorvastatin (Atorvastatin) 10 Mg Tab 10 MG PO HS Cholesterol Management #30 Ref 0 TAB Bisacodyl (Eq Gentle Laxative) 5 Mg Tab 15 MG PO DAILY PRN PRN Budesonide Neb (Budesonide Neb) 0.5 Mg/2 Ml Neb 0.5 MG NEB BID Breathing Treatment #30 Ref 0 NEBULE Fexofenadine (Mucinex Allergy) 180 Mg Tab 600 MG PO BID TAB Ipratropium Neb (Ipratropium Neb) 0.5 Mg/2.5 Ml Amp 0.5 MG NEB Q12HR NEB Breathing Treatment #60 Ref 0 NEBULE Levothyroxine (Levothyroxine) 88 Mcg Tab 88 MCG PO DAILY Thyroid #30 Ref 0 TAB Methadone (Methadone) 5 Mg Tab 2.5 MG PO HS Ref 0 TAB Paroxetine (Paroxetine) 20 Mg Tab 20 MG PO DAILY #30 Ref 0 TAB Pregabalin (Lyrica) 50 Mg Cap 50 MG PO TID #90 Ref 0 CAP Tiotropium Inh (Spiriva Handihaler) 18 Mcg Cap 18 MCG INH DAILY 1 capsule = 18 mcg COPD #30 Ref 0 CAP Discontinued Medications: Azithromycin (Azithromycin) 250 Mg Tab 250 MG PO DIRECTED Take 2 tabs (500 mg) on day 1 then 1 tab daily x 4 days. Infection #6 TAB Budesonide-Formoterol Inh (Symbicort Inh) 80-4.5 Mcg/Act Aero 1 PUFF INH Q12HR Asthma Management #1 Ref 0 INHALER Diltiazem (Diltiazem) 30 Mg Tab 30 MG PO BID Angina #120 Ref 0 TAB Prednisone (Prednisone) 20 Mg Tab 40 MG PO DAILY Days 4 TAB Sandra Lopez MD Oct 27, 2016 12:13
[2016-10-27] MEDS ORDERED: CARD120C4 PO (12:16)
[2016-10-27] MEDS ORDERED: LEVA750T PO (12:16)
[2016-10-27] MEDS ORDERED: MEDR4PAK PO (12:16)
[2016-10-27] MEDS ORDERED: OXYGENTANK NAS.CANULA (14:22)
[2016-10-27 16:00] VITALS: BP 129/88; PULSE 85; RESP 18; TEMP 97.4; O2SAT 94
[2016-10-27] MEDS: LEVOFLOXACIN 750 MG TAB PO SCH (18:09)
--- NOTE | 2016-10-27 18:11 | HHI.PR ---
Subjective Remarks Improved further. On O2 2L. No fever. Off IV meds Objective Vital Signs Date Time Temp Pulse Resp B/P Pulse Ox O2 Delivery O2 Flow Rate FiO2 10/27/16 16:00 97.4 85 18 129/88 94 10/27/16 09:15 Nasal Cannula 2.00 10/27/16 08:00 97.7 89 19 135/85 93 10/27/16 08:00 130 10/27/16 07:38 96 Nasal Cannula 2.00 10/27/16 04:29 97.8 78 20 116/67 95 10/27/16 00:29 96.5 71 22 133/84 93 10/26/16 20:54 20 10/26/16 20:28 96.3 75 22 117/74 95 10/26/16 20:28 Nasal Cannula 2.00 10/26/16 20:17 97 Nasal Cannula 2.00 10/26/16 20:00 68 10/26/16 19:20 18 I/O 10/26/16 10/26/16 10/26/16 10/27/16 10/27/16 10/27/16 07:00 15:00 23:00 07:00 15:00 23:00 Intake Total 60 ml 360 ml 2 ml Output Total 1400 ml 500 ml Balance -1340 ml 360 ml -500 ml 2 ml Intake Oral 60 ml 360 ml IV Total 2 ml Output Urine Total 1400 ml 500 ml # Voids 6 3 2 # Bowel Movements 0 Result Diagram: 10/25/16 0503 10/25/16 0503 Objective Remarks This elderly man who is thinly built, alert and oriented. HEENT: Head normocephalic. Pupils reactive. Tongue is moist. Throat was clear. Neck: Supple. No venous distension or thyromegaly. Chest: Equal movements with occ wheezes over both lung castro. Prolonged expirations. Occasional crackles at the lung bases. Heart sounds are irregular S1-S2. No murmur. Abdomen is soft, protuberant. No masses, no organomegaly or tenderness. Extremities: Keratotic skin lesions and diminished peripheral pulses. Reflexes 1+ with no gross motor deficits. Neurologic: Cranial nerves are intact. Rectal: Exam is deferred. Assessment and Plan Assessment and Plan IMPRESSION 1. Right basilar pneumonia with hypoxemia. 2. COPD with chronic bronchitis and emphysema. 3. Atrial fibrillation with RVR resolved. 4. Hyperlipidemia and hypertension. 5. Nicotine dependency. Plan : 1. O2 at 2 L. 2. Prednisone 20 mg bid 3. Continue levaquin PO 4. Symbicort 160/4.5 mcg , 2 puff bid 5. Home on O2 2L Salvador Calderon MD Oct 27, 2016 18:11
--- NOTE | 2016-11-26 10:03 | RSPPFT ---
DATE OF PROCEDURE: 10/25/16 COMMENTS: Spirometry demonstrates an FEV1 of 0.6 at 21% of predicted, FVC of 1.5 at 37%, FEV1/FVC ratio is 41%. The FEF 25-75 is 13% of predicted. Post-bronchodilator study demonstrated no significant change. Flow volume loops suggest an obstructive pattern. IMPRESSION: 1. Severe obstructive disease. 2. No significant change following use of bronchodilator.
== END 2016-10-27 19:26 | DRG 190 ==
LOC: PHED 13:37 → PHEDA 16:12 → PH3A 20:22
PROVIDERS: ADMIT Family Medicine; ATTEND Family Medicine
DX: J44.1 Chronic obstructive pulmonary disease with (acute) exacerbation (principal); J44.0 Chronic obstructive pulmonary disease with (acute) lower respiratory infection; J18.9 Pneumonia, unspecified organism; J96.11 Chronic respiratory failure with hypoxia; Z99.81 Dependence on supplemental oxygen; I48.91 Unspecified atrial fibrillation; G62.9 Polyneuropathy, unspecified; F17.210 Nicotine dependence, cigarettes, uncomplicated; I25.10 Atherosclerotic heart disease of native coronary artery without angina pectoris; Z95.5 Presence of coronary angioplasty implant and graft; Z85.46 Personal history of malignant neoplasm of prostate; Z90.79 Acquired absence of other genital organ(s); E78.5 Hyperlipidemia, unspecified; F41.9 Anxiety disorder, unspecified; M19.90 Unspecified osteoarthritis, unspecified site; Z79.82 Long term (current) use of aspirin; Z79.52 Long term (current) use of systemic steroids; E03.9 Hypothyroidism, unspecified; G89.29 Other chronic pain; I10 Essential (primary) hypertension; I71.4 Abdominal aortic aneurysm, without rupture; H91.90 Unspecified hearing loss, unspecified ear; Z23 Encounter for immunization
CPT/HCPCS: 71010; 71275; 80048; 80053; 83880; 84484; 85025; 90471; 90686; 90732; 93005; 94060; 94620; 94640; 94664; 96361; 96374; G0008; G0009; J1644; J1956; J2920; J7030; J7040; J7512; J7613; J7626; J7644; Q2038; Q9967

== ENCOUNTER 2017-01-08 13:33 | Inpatient (IN) | payer MEDICARE ==
[~2017-01-08] VITALS: Ht 177.8 cm; Wt 61.9 kg
[2017-01-08] VITALS (10 sets, daily range): BP systolic 85–110; BP diastolic 48–64; PULSE 80–108; RESP 16–23; TEMP 97.9–98.7; O2SAT 92–95
[~2017-01-08 13:33] MED LIST changes: +ASPI81CH CHEW; -ATOR10TA PO; +ATOR10TA15 PO; +BISA1TAB2 PO; +BUDE0.5S NEB; +CARD120C4 PO; -DILT31TA PO; +FEXO1TAB41 PO; +LEVA750T PO; -LYRI150C PO; +LYRI50CA PO; +MEDR4PAK PO; -METH5SOL3 PO; +METH5TAB PO; -MUCI600T PO; +OXYGENTANK NAS.CANULA; -PARO1TAB72 PO; +PARO20TA2 PO; -ST J81CH PO; -SYMB80AE INH
[2017-01-08] MEDS ORDERED: methylPREDNISolone SOD SUCC 125 MG/2 ML VIAL IVP ONE (14:00)
[2017-01-08] MEDS ORDERED: SODIUM CHLORID 0.9% 500 ML INJ 500 ML IV ONE ×2 (14:00→16:15)
--- NOTE | 2017-01-08 14:00 | PD ---
HPI Chief Complaint: Respiratory Distress Time Seen by Provider: 13:49 Travel History International Travel<30 days: No Contact w/Intl Traveler<30days: No Traveled to known affect area: No History of Present Illness HPI 86-year-old male presents with generalized weakness and cough for the past week. He denies any other specific complaints. His son is with him at bedside. He presents from the assisted. He states that he has been forgetting to use his nebulizer treatments when I asked him his use of them. He does note that he is on oxygen all the time. He states he recently had pneumonia. History is supplemented from assisted records as patient is a poor historian [facility] Past Medical History Narrative Medical By records Hx Anticoagulant Therapy: Yes Arthritis: Yes Asthma: No Atrial Fibrillation: Yes (NEW ONSET 11/2013) Autoimmune Disease: No Anxiety: Yes Depression: No Cancer: Yes (PROSTATE CANCER) Cardiac Catheterization: Yes High Cholesterol: Yes Chemotherapy: No Chest Pain: No Congestive Heart Failure: No COPD: Yes Cerebrovascular Accident: No Coronary Artery Disease: Yes Diabetes: No Diminished Hearing: Yes (AIDE DOESNT WEAR) Endocrine: No GERD: No Genitourinary: Yes Headaches: Yes Hiatal Hernia: No Immune Disorder: No Kidney Stones: No Musculoskeletal: Yes (LEFT LEG WEAKNESS) Neurologic: Yes Psychiatric: Yes Reproductive: No Respiratory: Yes (COPD) Migraines: No Radiation Therapy: No Renal Failure: No 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) Sickle Cell Disease: No Sleep Apnea: No Thyroid Disease: Yes Ulcer: No Past Surgical History Narrative Surgical By records Abdominal Surgery: No AICD: No Arteriovenous Shunt: No Cardiac Surgery: Yes (stent) Coronary Stent: Yes Ear Surgery: No Endocrine Surgery: No Eye Surgery: No Genitourinary Surgery: No Gynecologic Surgery: No Insulin Pump: No Joint Replacement: No Oral Surgery: No Pacemaker: No Thoracic Surgery: No Other Surgery: Yes (PROSTATE REMOVAL) Social History Alcohol Use: No (QUIT 20 YEARS AGO ) Tobacco Use: Yes (3/4 CIGARETTES/DAY) Substance Use: No Allergies-Medications (Allergen,Severity, Reaction): Coded Allergies: Penicillin (Verified Allergy, Severe, A CHILD, 01/08/17) Procaine (Verified Allergy, Unknown, 01/08/17) Uncoded Allergies: BENZATHIN (Allergy, Unknown, 10/23/16) Reported Meds & Prescriptions Reported Meds & Active Scripts Active Oxygen tank (Oxygen) 1 Ea Tank 2 Liter BIRD.CANULA CONTINUOUS Oxygen Concentrator Portable Gaseous 2 L/min via Nasal Cannula Continuous For 99 months Cardizem CD 24 HR (Diltiazem CD 24 HR) 120 Mg Caper 120 Mg PO DAILY Reported Lyrica (Pregabalin) 50 Mg Cap 50 Mg PO TID Paroxetine (Paroxetine HCl) 20 Mg Tab 20 Mg PO DAILY Atorvastatin (Atorvastatin Calcium) 10 Mg Tab 10 Mg PO HS Methadone (Methadone HCl) 5 Mg Tab 2.5 Mg PO HS Ipratropium Neb (Ipratropium [place]) 0.5 Mg/2.5 Ml Amp 0.5 Mg NEB Q12HR NEB Eq Gentle Laxative (Bisacodyl) 5 Mg Tab 15 Mg PO DAILY PRN Spiriva Handihaler (Tiotropium Inh) 18 Mcg Cap 18 Mcg INH DAILY 1 capsule = 18 mcg Budesonide Neb 0.5 Mg/2 Ml Neb 0.5 Mg NEB BID Levothyroxine (Levothyroxine Sodium) 88 Mcg Tab 88 Mcg PO DAILY Aspirin 81 Mg Chew 81 Mg CHEW DAILY Review of Systems Except as stated in HPI: all other systems reviewed are Neg Physical Exam Exam Limitations: Poor Historian Narrative GENERAL: Pleasant elderly male patient. SKIN: Warm and dry. HEAD: Normocephalic and atraumatic. EYES: No injection or drainage. ENT: No nasal drainage noted. NECK: Supple, trachea midline. CARDIOVASCULAR: irregular rate and rhythm RESPIRATORY: Expiratory wheezing bilaterally. No accessory muscle use. GASTROINTESTINAL: Abdomen soft, non-tender, nondistended. NEUROLOGICAL: Awake. Moves all extremities. Normal speech. Data Data Last Documented VS Vital Signs Date Time Temp Pulse Resp B/P Pulse Ox O2 Delivery O2 Flow Rate FiO2 01/08/17 15:00 94 18 90/48 95 Nasal Cannula 3 01/08/17 13:37 98.7 Orders Electrocardiogram (01/08/17 13:50) Complete Blood Count With Diff (01/08/17 13:50) Comprehensive Metabolic Panel (01/08/17 13:50) Prothrombin Time / Inr (Pt) (01/08/17 13:50) Act Partial Throm Time (Ptt) (01/08/17 13:50) Lactic Acid Sepsis Protocol (01/08/17 13:50) Magnesium (Mg) (01/08/17 13:50) Phosphorus (Po4) (01/08/17 13:50) Ckmb (Isoenzyme) Profile (01/08/17 13:50) Troponin I (01/08/17 13:50) Urinalysis - C+S If Indicated (01/08/17 13:50) Influenzae A/B Antigen (01/08/17 13:50) Blood Culture (01/08/17 13:50) Chest, Single Ap (01/08/17 13:50) Ecg Monitoring (01/08/17 13:50) Iv Access Insert/Monitor (01/08/17 13:50) Oximetry (01/08/17 13:50) Oxygen Administration (01/08/17 13:50) Sodium Chlorid 0.9% 500 Ml Inj (Ns 500 M (01/08/17 14:00) Methylprednisolone So Succ Inj (Solumedr (01/08/17 14:00) Albuterol-Ipratropium Neb (Duoneb Neb) (01/08/17 14:00) Albuterol-Ipratropium Neb (Duoneb Neb) (01/08/17 14:45) Levofloxacin 750 Mg Premix Inj (Levaquin (01/08/17 15:15) Admit Order (Ed Use Only) (01/08/17 15:31) Labs Laboratory Tests Test 01/08/17 01/08/17 14:10 14:40 White Blood Count 14.1 TH/MM3 Red Blood Count 4.30 MIL/MM3 Hemoglobin 12.5 GM/DL Hematocrit 39.3 % Mean Corpuscular Volume 91.3 FL Mean Corpuscular Hemoglobin 29.1 PG Mean Corpuscular Hemoglobin 31.9 % Concent Red Cell Distribution Width 14.7 % Platelet Count 158 TH/MM3 Mean Platelet Volume 8.6 FL Neutrophils (%) (Auto) 88.5 % Lymphocytes (%) (Auto) 2.4 % Monocytes (%) (Auto) 8.1 % Eosinophils (%) (Auto) 0.1 % Basophils (%) (Auto) 0.9 % Neutrophils # (Auto) 12.6 TH/MM3 Lymphocytes # (Auto) 0.3 TH/MM3 Monocytes # (Auto) 1.1 TH/MM3 Eosinophils # (Auto) 0.0 TH/MM3 Basophils # (Auto) 0.1 TH/MM3 CBC Comment DIFF FINAL Differential Comment Prothrombin Time 11.4 SEC Prothromb Time International 1.0 RATIO Ratio Activated Partial 28.0 SEC Thromboplast Time Sodium Level 136 MEQ/L Potassium Level 4.2 MEQ/L Chloride Level 100 MEQ/L Carbon Dioxide Level 28.7 MEQ/L Anion Gap 7 MEQ/L Blood Urea Nitrogen 21 MG/DL Creatinine 1.10 MG/DL Estimat Glomerular Filtration 64 ML/MIN Rate Random Glucose 128 MG/DL Lactic Acid Level 1.6 mmol/L Calcium Level 8.6 MG/DL Phosphorus Level 2.8 MG/DL Magnesium Level 2.4 MG/DL Total Bilirubin 0.8 MG/DL Aspartate Amino Transf 44 U/L (AST/SGOT) Alanine Aminotransferase 30 U/L (ALT/SGPT) Alkaline Phosphatase 165 U/L Total Creatine Kinase 66 U/L Troponin I LESS THAN 0.02 NG/ML Total Protein 6.8 GM/DL Albumin 3.0 GM/DL Urine Collection Type CLEAN CATCH Urine Color YELLOW Urine Turbidity CLEAR Urine pH 5.5 Urine Specific [place] 1.022 Urine Protein 30 mg/dL Urine Glucose (UA) NEG mg/dL Urine Ketones NEG mg/dL Urine Occult Blood SMALL Urine Nitrite NEG Urine Bilirubin NEG Urine Leukocyte Esterase NEG Urine RBC 10-14 /hpf Urine WBC 0-2 /hpf Urine Squamous Epithelial 0-5 /hpf Cells Urine Hyaline Casts 20-24 /lpf Microscopic Urinalysis Comment CULT NOT INDICATED Urine Collection Time 14:40 MDM Medical Decision Making Medical Screen Exam Complete: Yes Emergency Medical Condition: Yes Medical Record Reviewed: Yes (past history confirmed) Interpretation(s) EKG is atrial flutter at 88 without STEMI criteria CBC & BMP Diagram 01/08/17 14:10 Last 24 hours Impressions Chest X-Ray 01/08/17 1350 Signed Impressions: Service Date/Time: Sunday, January 08, 2017 13:58 - CONCLUSION: COPD Stable chest without evidence of acute process. Chapito Pelaez MD Differential Diagnosis Pneumonia, COPD exacerbation, renal failure, URI, anemia Narrative Course Will check blood work, chest x-ray and dose with DuoNeb's, Solu-Medrol, gentle IV fluids and reevaluate Given elevated white count and possible respiratory source provided with Levaquin and aztreonam for coverage. Patient does have heart rate of 94 but no elevation in lactate. He'll be monitored in the hospital. He states he is feeling better after breathing treatments and he has improved aeration. We will place an intermediate care for close monitoring given mild associated hypotension Sepsis Criteria SIRS Criteria (2 or more): Heart rate over 90, WBC > 41405, < 4000 or > 10% bands Sepsis Criteria (SIRS+source): Infect source susp/known Physician Communication Physician Communication dr cobb agrees to admit Diagnosis Primary Impression: COPD exacerbation Additional Impression: Sepsis Qualified Code: A41.9 - Sepsis, due to unspecified organism Admitting Information Admitting Physician Requests: Admit Liz Cueto MD Jan 08, 2017 14:00
[2017-01-08] MEDS: RESP: ALBUTEROL 2.5 MG/IPRATROPIUM 0.5 MG NEB (SCH) INH ×2 (14:03→14:04)
--- NOTE | 2017-01-08 14:24 | RADHPO ---
EXAM DATE/TIME: 01/08/2017 13:58 [place] COMPARISON: CHEST SINGLE AP, October 26, 2016, 5:34. INDICATIONS : Cough. Shortness of breath. Wheezing. Weakness. MEDICAL HISTORY : Hypercholesterolemia. Emphysema. Carcinoma, prostate. Chronic obstructive pulmonary disease. CAD . A-fib. Thyroid disease. Seizures. SURGICAL HISTORY : Prostatectomy. Cardiac cath w/ stent. Lumbar surgery. ENCOUNTER: Initial ACUITY: 1 week PAIN SCORE: 0/10 LOCATION: chest FINDINGS: Lungs are hyperinflated. Mild generalized interstitial prominence is noted. There is no evidence of s ignificant congestion or acute consolidating airspace disease. Heart and mediastinal structures are stable and unremarkable. CONCLUSION: COPD Stable chest without evidence of acute process. Chapito Pelaez MD on January 08, 2017 at 14:21 Board Certified Radiologist. This report was verified electronically.
[2017-01-08 14:30] LABS: AUTOMATED NEUTROPHIL # 12.6 TH/MM3 (1.8-7.7); BASOPHIL # 0.1 TH/MM3 (0-0.2); BASOPHIL % 0.9 % (0.0-2.0); EOSINOPHIL % 0.1 % (0.0-4.0); HEMATOCRIT 39.3 % (39.0-51.0); LYMPH % 2.4 % (9.0-44.0); LYMPHOCYTE # 0.3 TH/MM3 (1.0-4.8); MEAN CELL VOLUME 91.3 FL (80.0-100.0); MEAN CORPUSCULAR HEMOGLOBIN 29.1 PG (27.0-34.0); MEAN CORPUSCULAR HGB CONC 31.9 % (32.0-36.0); MONO % 8.1 % (0.0-8.0); NEUT % 88.5 % (16.0-70.0); PLATELET COUNT 158 TH/MM3 (150-450); RED CELL DISTRIBUTION WIDTH 14.7 % (11.6-17.2); WHITE BLOOD COUNT 14.1 TH/MM3 (4.0-11.0)
[2017-01-08 14:31] LABS: HEMO FLAGS DIFF FINAL
[2017-01-08] MEDS ORDERED: RESP: ALBUTEROL 2.5 MG/IPRATROPIUM 0.5 MG NEB (SCH) NEB ONE (14:45)
[2017-01-08 14:47] LABS: BLOOD, URINE SMALL (NEG); GLUCOSE,URINE NEG (NEG); KETONE, URINE NEG (NEG); NITRITE,URINE NEG (NEG)
[2017-01-08 14:48] LABS: CHLORIDE 100 MEQ/L (98-107); POTASSIUM 4.2 MEQ/L (3.5-5.1); SODIUM (NA) 136 MEQ/L (136-145)
[2017-01-08 14:52] LABS: ANION GAP 7 MEQ/L (5-15); BICARBONATE 28.7 MEQ/L (21.0-32.0); BLOOD UREA NITROGEN 21 MG/DL (7-18); MAGNESIUM 2.4 MG/DL (1.5-2.5)
[2017-01-08 14:54] LABS: METHOD OF COLLECTION CLEAN CATCH; PH, URINE 5.5 (5.0-8.5); URINE COLOR YELLOW (YELLW/STRAW)
[2017-01-08 14:55] LABS: COMMENT (UR) CULT NOT INDICATED; CULTURE IF INDICATED CULT NOT INDICATED; SQUAMOUS EPITHELIAL CELL URINE 0-5 /hpf (0-5); WBC, URINE 0-2 /hpf (0-5)
[2017-01-08 14:55] LABS: ALT (GPT) 30 U/L (12-78); AST (GOT) 44 U/L (15-37); GLOMERULAR FILTRATION RATE 64 ML/MIN (>89)
[2017-01-08 14:57] LABS: TOTAL BILIRUBIN ADULT 0.8 MG/DL (0.2-1.0)
[2017-01-08 14:58] LABS: ALKALINE PHOSPHATASE 165 U/L (45-117)
[2017-01-08 15:02] LABS: CREATINE KINASE 66 U/L (39-308)
[2017-01-08 15:07] LABS: PROTHROMBIN TIME - PATIENT 11.4 SEC (9.8-11.6)
[2017-01-08] MEDS ORDERED: LEVOFLOXACIN 750 MG PREMIX INJ 150 ML IV ONE (15:15)
[2017-01-08] MEDS ORDERED: SODIUM CHLORIDE 0.9% FLUSH 10 ML FLUSH IV FLUSH PRN (15:45)
[2017-01-08] MEDS ORDERED: LACTULOSE SYRUP 20 GM/30 ML CUP PO PRN (15:45)
[2017-01-08] MEDS ORDERED: NALOXONE HCL 0.4 MG/ML AMP IV PRN (15:45)
[2017-01-08] MEDS ORDERED: MAGNESIUM HYDROXIDE SUSP 30 ML CUP PO PRN (15:45)
[2017-01-08] MEDS ORDERED: SENNOSIDES 8.6 MG TAB PO PRN (15:45)
[2017-01-08] MEDS ORDERED: BISACODYL 10 MG SUPP RECTAL PRN (15:45)
[2017-01-08] MEDS: RESP: ALBUTEROL 2.5 MG/IPRATROPIUM 0.5 MG NEB (SCH) NEB ×2 (16:00→21:21)
[2017-01-08] MEDS ORDERED: AZTREONAM INJ 2,000 MG in SODIUM CHLORIDE 0.9% INJ 100 ML IV ONE (16:15)
[2017-01-08] MEDS: HEPARIN SODIUM - SQ 10,000 UNITS/ML VIAL SQ SCH (16:44)
--- NOTE | 2017-01-08 18:10 | EKG ---
Date Performed: 01/08/2017 Time Performed: 14:14:56 PTAGE: 86 years EKG: Atrial fibrillation/flutter COMPARED TO PRIOR ELECTROCARDIOGRAM, Rate has slowed. Abnormal ECG PREVIOUS TRACING : 10/23/2016 15.22 DOCTOR: Dylon Aguilera Interpretating Date/Time 01/08/2017 18:08:46
--- NOTE | 2017-01-08 18:41 | HHI.HP ---
[facility] Service [facility] Primary Care Physician Non-Staff Admission Diagnosis copd exacerbation Diagnoses: Travel History International Travel<30 Days: No Contact w/Intl Traveler <30 Da: No Traveled to Known Affected Are: No History of Present Illness 86-year-old male with a history of COPD, atrial fibrillation, coronary artery disease presents with a one-week history of worsening shortness of breath. Patient denies any chest pain. Denies any peripheral edema. Denies any nausea or vomiting. Patient reports chronic dark cough which has not changed recently. He denies any lightheadedness or dizziness, however says it has been difficult to get around at home with his shortness of breath over the past week. Denies any fevers, chills, sore throat or sinus congestion. Patient states that he manages his own nebulizers.Patient states his only inhaler is as needed albuterol. He reports poor compliance with the budesonide , Tiotropium. Review of Systems Performed and negative except for history of present illness and past medical history. Past Family Social History Past Medical History COPD Atrial fibrillation History of prostate cancer Coronary artery disease Hyperlipidemia Anxiety Osteoarthritis Depression. Chronic musculoskeletal pain. Past Surgical History Cardiac catheterization with coronary artery stent placement Prostatectomy Tonsillectomy Reported Medications Reported Meds & Active Scripts Active Oxygen tank (Oxygen) 1 Ea Tank 2 Liter BIRD.CANULA CONTINUOUS Oxygen Concentrator Portable Gaseous 2 L/min via Nasal Cannula Continuous For 99 months Cardizem CD 24 HR (Diltiazem CD 24 HR) 120 Mg Caper 120 Mg PO DAILY Reported Lyrica (Pregabalin) 50 Mg Cap 50 Mg PO TID Paroxetine (Paroxetine HCl) 20 Mg Tab 20 Mg PO DAILY Atorvastatin (Atorvastatin Calcium) 10 Mg Tab 10 Mg PO HS Methadone (Methadone HCl) 5 Mg Tab 2.5 Mg PO HS Ipratropium Neb (Ipratropium [place]) 0.5 Mg/2.5 Ml Amp 0.5 Mg NEB Q12HR NEB Eq Gentle Laxative (Bisacodyl) 5 Mg Tab 15 Mg PO DAILY PRN Spiriva Handihaler (Tiotropium Inh) 18 Mcg Cap 18 Mcg INH DAILY 1 capsule = 18 mcg Budesonide Neb 0.5 Mg/2 Ml Neb 0.5 Mg NEB BID Levothyroxine (Levothyroxine Sodium) 88 Mcg Tab 88 Mcg PO DAILY Aspirin 81 Mg Chew 81 Mg CHEW DAILY Allergies: Coded Allergies: Penicillin (Verified Allergy, Severe, A CHILD, 01/08/17) Procaine (Verified Allergy, Unknown, 01/08/17) Uncoded Allergies: BENZATHIN (Allergy, Unknown, 10/23/16) Family History Both mother and father in old age. Patient is not aware of any specific diagnoses. Social History Patient continues to smoke one half pack per day, has smoked for the past 70 years. Drinks one glass of wine every night. Denies any illicit drugs. Physical Exam Vital Signs Vital Signs Date Time Temp Pulse Resp B/P Pulse Ox O2 Delivery O2 Flow Rate FiO2 01/08/17 16:57 102 16 94/55 94 Nasal Cannula 2 01/08/17 16:20 108 20 94/55 92 Nasal Cannula 2 01/08/17 16:03 98 18 85/52 93 Nasal Cannula 3 01/08/17 15:00 94 18 90/48 95 Nasal Cannula 3 01/08/17 14:06 94 Nasal Cannula 2.00 01/08/17 13:53 18 94 Nasal Cannula 2 01/08/17 13:53 94 Nasal Cannula 2 01/08/17 13:44 18 94 Nasal Cannula 2 01/08/17 13:37 98.7 88 18 93/53 94 Physical Exam GENERAL: Thin 86-year-old male. Appears short of breath. He is alert and oriented 3. SKIN: No rashes, ecchymoses or lesions. Cool and dry. HEAD: Atraumatic. Normocephalic. No temporal or scalp tenderness. EYES: Pupils equal round and reactive. Extraocular motions intact. No scleral icterus. No injection or drainage. ENT: Nose without bleeding, purulent drainage or septal hematoma. Throat without erythema, tonsillar hypertrophy or exudate. Uvula midline. Airway patent. NECK: Trachea midline. No JVD or lymphadenopathy. Supple, nontender, no meningeal signs. CARDIOVASCULAR: Regular rate and rhythm without murmurs, gallops, or rubs. RESPIRATORY: Wheezes bilaterally. Dry Rales bilateral bases. No rhonchi. GASTROINTESTINAL: Abdomen soft, non-tender, nondistended. No hepato-splenomegaly , or palpable masses. No guarding. MUSCULOSKELETAL: Extremities without clubbing, cyanosis, or edema. No joint tenderness, effusion, or edema noted. No calf tenderness. Negative Homans sign bilaterally. NEUROLOGICAL: Awake and alert. Cranial nerves II through XII intact. Motor and sensory grossly within normal limits. Five out of 5 muscle strength in all muscle groups. Normal speech. Laboratory Laboratory Tests Test 01/08/17 01/08/17 01/08/17 14:10 14:40 16:50 White Blood Count 14.1 Red Blood Count 4.30 Hemoglobin 12.5 Hematocrit 39.3 Mean Corpuscular Volume 91.3 Mean Corpuscular Hemoglobin 29.1 Mean Corpuscular Hemoglobin 31.9 Concent Red Cell Distribution Width 14.7 Platelet Count 158 Mean Platelet Volume 8.6 Neutrophils (%) (Auto) 88.5 Lymphocytes (%) (Auto) 2.4 Monocytes (%) (Auto) 8.1 Eosinophils (%) (Auto) 0.1 Basophils (%) (Auto) 0.9 Neutrophils # (Auto) 12.6 Lymphocytes # (Auto) 0.3 Monocytes # (Auto) 1.1 Eosinophils # (Auto) 0.0 Basophils # (Auto) 0.1 CBC Comment DIFF FINAL Differential Comment Prothrombin Time 11.4 Prothromb Time International 1.0 Ratio Activated Partial 28.0 Thromboplast Time Sodium Level 136 Potassium Level 4.2 Chloride Level 100 Carbon Dioxide Level 28.7 Anion Gap 7 Blood Urea Nitrogen 21 Creatinine 1.10 Estimat Glomerular Filtration 64 Rate Random Glucose 128 Lactic Acid Level 1.6 Calcium Level 8.6 Phosphorus Level 2.8 Magnesium Level 2.4 Total Bilirubin 0.8 Aspartate Amino Transf 44 (AST/SGOT) Alanine Aminotransferase 30 (ALT/SGPT) Alkaline Phosphatase 165 Total Creatine Kinase 66 Troponin I LESS THAN 0.02 Total Protein 6.8 Albumin 3.0 Urine Collection Type CLEAN CATCH Urine Color YELLOW Urine Turbidity CLEAR Urine pH 5.5 Urine Specific [place] 1.022 Urine Protein 30 Urine Glucose (UA) NEG Urine Ketones NEG Urine Occult Blood SMALL Urine Nitrite NEG Urine Bilirubin NEG Urine Leukocyte Esterase NEG Urine RBC 10-14 Urine WBC 0-2 Urine Squamous Epithelial 0-5 Cells Urine Hyaline Casts 20-24 Microscopic Urinalysis Comment CULT NOT INDICATED Urine Collection Time 14:40 Thyroid Stimulating Hormone 0.969 3rd Gen Date/Time Procedure Status Source Growth 01/08/17 14:30 Influenza Types A,B Antigen (CARLOS) - Final Complete Nasal Aspirate NEGATIVE FOR FLU A AND B ANTIGEN.... 01/08/17 14:15 Aerobic Blood Culture Received Blood Peripheral Pending 01/08/17 14:15 Anaerobic Blood Culture Received Blood Peripheral Pending Result Diagram: 01/08/17 1410 01/08/17 1410 Imaging Last Impressions Chest X-Ray 01/08/17 1350 Signed Impressions: Service Date/Time: Sunday, January 08, 2017 13:58 - CONCLUSION: COPD Stable chest without evidence of acute process. Chapito Pelaez MD Assessment and Plan Assessment and Plan //COPD exacerbation. -Chest x-ray reviewed with no acute findings. -Likely secondary to noncompliance. -Patient would benefit from home health for medication management at discharge. -Solu-Medrol, duo marie, pulmonology consultation. Acapella and incentive spirometry. //History of atrial fibrillation. -Heart rate acceptable. Continue diltiazem. //History of coronary artery disease. History of stent in the past. Continue aspirin. //Hyperlipidemia. Chronic. Continue statin //Hypothyroidism. Chronic. Check TSH. Continue Synthroid. //Anxiety. Chronic. Continue home medications. //Chronic pain. Continue Lyrica. //Tobacco abuse. Counseling provided. Cessation strongly advised. //DVT prophylaxis. SCDs. Discussed Condition With Patient, nurse, ED physician. Physician Certification 2 Midnight Certification Type: Admission for Inpatient Services Order for Inpatient Services The services are ordered in accordance with Medicare regulations or non- Medicare payer requirements, as applicable. In the case of services not specified as inpatient-only, they are appropriately provided as inpatient services in accordance with the 2-midnight benchmark. Estimated LOS (days): 3 days is the estimated time the patient will need to remain in the hospital, assuming treatment plan goals are met and no additional complications. Post-Hospital Plan: Not yet determined Durga Beltran MD Jan 08, 2017 18:41
[2017-01-08 19:04] LABS: FREE T4 1.05 NG/DL (0.76-1.46)
[2017-01-08] MEDS: RESP: BUDESONIDE 0.5 MG/2 ML NEB NEB SCH (19:12)
[2017-01-08] MEDS ORDERED: RESP: IPRATROPIUM 0.5 MG/2.5 ML NEB NEB SCH (20:00)
[2017-01-08] MEDS ORDERED: ATORVASTATIN 10 MG TAB PO SCH (21:00)
[2017-01-08] MEDS: methylPREDNISolone SOD SUCC 40 MG/1 ML VIAL IV PUSH SCH (21:08)
[2017-01-08] MEDS: SODIUM CHLORIDE 0.9% FLUSH 10 ML FLUSH IV FLUSH SCH (21:08)
[2017-01-09] VITALS: BP 105/57; PULSE 78; RESP 23; TEMP 98; O2SAT 94
[2017-01-09] MEDS: HEPARIN SODIUM - SQ 10,000 UNITS/ML VIAL SQ SCH (03:46)
[2017-01-09 04:00] VITALS: BP 100/53; PULSE 80; RESP 32; TEMP 97.8; O2SAT 95
[2017-01-09] MEDS: RESP: IPRATROPIUM 0.5 MG/2.5 ML NEB NEB SCH ×3 (04:00→14:52)
[2017-01-09 05:09] LABS: AUTOMATED NEUTROPHIL # 8.8 TH/MM3 (1.8-7.7); BASOPHIL % 0.2 % (0.0-2.0); HEMATOCRIT 38.4 % (39.0-51.0); HEMO FLAGS DIFF FINAL; LYMPH % 3.3 % (9.0-44.0); LYMPHOCYTE # 0.3 TH/MM3 (1.0-4.8); MEAN CELL VOLUME 92.6 FL (80.0-100.0); MEAN CORPUSCULAR HGB CONC 32.4 % (32.0-36.0); MONO % 1.7 % (0.0-8.0); NEUT % 94.8 % (16.0-70.0); PLATELET COUNT 121 TH/MM3 (150-450); RED BLOOD COUNT 4.15 MIL/MM3 (4.50-5.90); WHITE BLOOD COUNT 9.3 TH/MM3 (4.0-11.0)
[2017-01-09 05:12] LABS: POTASSIUM 4.5 MEQ/L (3.5-5.1)
[2017-01-09] MEDS: methylPREDNISolone SOD SUCC 40 MG/1 ML VIAL IV PUSH SCH (05:14)
[2017-01-09 05:15] LABS: BICARBONATE 30.2 MEQ/L (21.0-32.0)
[2017-01-09] MEDS: RESP: BUDESONIDE 0.5 MG/2 ML NEB NEB SCH (07:38)
[2017-01-09 07:57] VITALS: O2SAT 97
[2017-01-09 08:00] VITALS: BP 133/72; PULSE 76; PULSE 84; RESP 28; TEMP 98.1
[2017-01-09] MEDS: PREGABALIN 25 MG CAP PO SCH ×2 (08:42→13:41)
[2017-01-09] MEDS: SODIUM CHLORIDE 0.9% FLUSH 10 ML FLUSH IV FLUSH SCH (08:43)
[2017-01-09] MEDS ORDERED: ASPIRIN 81 MG CHEW TAB CHEW SCH (09:00)
[2017-01-09] MEDS ORDERED: PARoxetine HCL 20 MG TAB PO SCH (09:00)
[2017-01-09] MEDS ORDERED: DILTIAZEM-CD 120 MG CAP ER PO SCH (09:00)
[2017-01-09 12:00] VITALS: BP 121/70; PULSE 70; RESP 20; TEMP 97.7; O2SAT 99
--- NOTE | 2017-01-09 14:39 | HHI.FF ---
Face to Face Verification Diagnosis: (1) COPD exacerbation Physical Therapy Order: Evaluate and Treat Home Health Nursing Order: Nursing assessment with vital signs Instructions: Home health nurse for medication management. additionally patient needs help organizing his scheduled nebulizers for COPD Flake [employer] Order: To Provide: Long range planning I have seen patient Navdeep AdamsJr on 01/09/17. My clinical findings support the need for the requested home health care services because: Deconditioned w/ increased weakness Med compliance is questionable I certify that my clinical findings support that this patient is homebound because: Hx COPD- exertion dyspnea/weakness Unsafe to leave home unassisted Durga Beltran MD Jan 09, 2017 14:39
[2017-01-09] MEDS ORDERED: SYMB160A INH (14:43)
[2017-01-09] MEDS ORDERED: IPRA0.02 NEB (14:43)
[2017-01-09] MEDS ORDERED: AZIT250T3 PO (14:43)
[2017-01-09] MEDS ORDERED: PRED10 PO (14:43)
--- NOTE | 2017-01-09 14:49 | HHI.PR ---
Subjective Remarks She says breathing is better. Denies any chest pain. No nausea or vomiting. Objective Vital Signs Date Time Temp Pulse Resp B/P Pulse Ox O2 Delivery O2 Flow Rate FiO2 01/09/17 12:00 97.7 70 20 121/70 99 01/09/17 12:00 70 01/09/17 08:00 76 01/09/17 08:00 98.1 84 28 133/72 01/09/17 07:57 97 Nasal Cannula 2.50 01/09/17 04:00 97.8 80 32 100/53 95 01/09/17 04:00 80 01/09/17 00:00 78 01/09/17 00:00 98.0 78 23 105/57 94 01/08/17 20:00 97.9 80 21 110/64 94 01/08/17 20:00 80 01/08/17 19:13 95 Nasal Cannula 2.00 01/08/17 18:28 98.2 84 23 106/63 95 01/08/17 16:57 102 16 94/55 94 Nasal Cannula 2 01/08/17 16:20 108 20 94/55 92 Nasal Cannula 2 01/08/17 16:03 98 18 85/52 93 Nasal Cannula 3 01/08/17 15:00 94 18 90/48 95 Nasal Cannula 3 I/O 01/08/17 01/08/17 01/08/17 01/09/17 01/09/17 01/09/17 07:00 15:00 23:00 07:00 15:00 23:00 Intake Total 1270 ml 500 ml Output Total 1100 ml Balance 1270 ml -600 ml Intake Oral 120 ml 500 ml IV Total 1150 ml Output Urine Total 1100 ml # Voids 4 # Bowel Movements 0 Result Diagram: 01/09/17 0440 01/09/17 0440 Imaging Last Impressions Chest X-Ray 01/08/17 1350 Signed Impressions: Service Date/Time: Sunday, January 08, 2017 13:58 - CONCLUSION: COPD Stable chest without evidence of acute process. Chpaito Pelaez MD Objective Remarks GENERAL: Sitting up in chair. Appears to be breathing comfortably. Alert and oriented 3. SKIN: Warm and dry. HEAD: Normocephalic. EYES: No scleral icterus. No injection or drainage. NECK: Supple, trachea midline. No JVD. CARDIOVASCULAR: Regular rate and rhythm without murmurs, gallops, or rubs. RESPIRATORY: Still with some wheezes bilaterally, dry crackles, however air movement much improved from yesterday. GASTROINTESTINAL: Abdomen soft, non-tender, nondistended. MUSCULOSKELETAL: No cyanosis, or edema. BACK: Nontender without obvious deformity. No CVA tenderness. A/P Assessment and Plan =======01/09/17 Breathing improved today. Says he may feel comfortable going home today Continue duo nebs, steroids. Appreciate pulmonology assistance //COPD exacerbation. -Chest x-ray reviewed with no acute findings. -Likely secondary to noncompliance. -Patient would benefit from home health for medication management at discharge. -Solu-Medrol, haja salazar, pulmonology consultation. Acapella and incentive spirometry. -Switched to prednisone taper. -Twice daily Symbicort. -Once daily to interpret them. -Home health for medication management, specifically for compliance with daily nebulizers/inhalers. Follow-up with pulmonology as outpatient. He course of azithromycin. //History of atrial fibrillation. -Heart rate acceptable. Continue diltiazem. //History of coronary artery disease. History of stent in the past. Continue aspirin. //Hyperlipidemia. Chronic. Continue statin //Hypothyroidism. Chronic. Check TSH. Continue Synthroid. //Anxiety. Chronic. Continue home medications. //Chronic pain. Continue Lyrica. //Tobacco abuse. Counseling provided. Cessation strongly advised. //DVT prophylaxis. SCDs. Discharge Planning Discharge home today in good condition. Heart healthy diet. Activity ad patricia. Please see discharge medication reconciliation for medication list. Follow-up with primary care and pulmonology within 1 week. We'll have home health for medication, nebulizer/inhaler management. Stop smoking Durga Beltran MD Jan 09, 2017 14:49
[2017-01-09] MEDS ORDERED: predniSONE 10 MG TAB PO SCH (21:00)
[2017-01-09] MEDS ORDERED: BUDESONIDE-FORMOTEROL 160/4.5 MCG INHALER INH SCH (21:00)
--- NOTE | 2017-01-10 07:43 | MB ---
cc: CHIN CALDERON DATE OF CONSULTATION 01/09/2017 REASON FOR CONSULTATION COPD. HISTORY OF PRESENT ILLNESS This is an 86-year-old white male previously known to me with a longstanding history of COPD, history of coronary artery disease and atrial fibrillation. He was admitted with shortness of breath for the past several days. The patient has had some cough as well but does not bring up much sputum and he denied chest pains or hemoptysis but has had mild leg swelling. Upon arrival in the ER he did have a chest x-ray and the chest x-ray reportedly showed no acute process and there was some interstitial prominence bilaterally. The patient has been started on IV antibiotics, IV steroids, nebulized bronchodilators and on oxygen at 2 liters. He is presently feeling better, denies any chest discomfort and his oxygen saturation is 96% on 2 liters. He lives in an assisted living facility and has been on a nebulizer but does not use it regularly. He also uses Spiriva once a day. PAST HISTORY The past history has included - 1. History of coronary artery disease. 2. Atrial fibrillation. 3. Cardiomyopathy. 4. History of arthritis. 5. Depression. 6. COPD with chronic bronchitis. PAST SURGICAL HISTORY 1. Tonsillectomy. 2. Prostatectomy for prostate cancer. 3. Cardiac catheterization and stenting for coronary artery disease. HABITS The patient smoked in the past for over 60 years about half to one-pack per day. Drinks alcohol regularly. ALLERGIES PENICILLIN. PROCAINE. BENZATHINE. MEDICATION LIST 1. Cardizem CD 120 mg daily. 2. oxygen 2 liters nasal cannula. 3. Atorvastatin 10 mg at bedtime. 4. Paroxetine 20 mg daily. 5. Levothyroxine 88 mcg a day. 6. Budesonide nebs b.i.d. SYSTEMS REVIEW The patient has lost weight. He has occasional headaches, postnasal drip. Denies any chest pains. He has no urinary symptoms. He does have arthritis of his extremities. He has some depression with anxiety. The other system review is negative. PHYSICAL EXAMINATION GENERAL: This averagely built, elderly man is pale and in no acute distress. VITAL SIGNS: Blood pressure is 100/60, pulse is 90, respirations 22, temperature 97.5. HEENT: Head normocephalic. Pupils are reactive. Throat is clear. Ears - no inflammation. NECK: No bruits. There is mild venous distension. Trachea midline. CHEST: Equal movements with decreased excursions. Occasional crackles at the lung bases with a few scattered wheezes bilaterally. HEART SOUNDS: Irregular, S1 and S2 but no murmur. No S3. ABDOMEN: Soft, nontender. No organomegaly. Bowel sounds are active. EXTREMITIES: No lesions, no edema. NEUROLOGIC: Reflexes are 1+ with no gross motor deficits. Cranial nerves are grossly intact. RECTAL: Exam is deferred. SKIN: No lesions are noted. IMPRESSION 1. COPD with acute exacerbation. 2. Chronic interstitial lung disease. 3. History of atrial fibrillation and ASHD. 4. Hypothyroidism. 5. Anxiety disorder. 6. Degenerative arthritis with chronic pain. PLAN The patient will be switched to O2 at 2 liters nebulized albuterol and Atrovent solution t.i.d. and instead of budesonide will be on Symbicort inhaler 160/4.5 two puffs twice a day. We will discontinue his Solu-Medrol, place him on prednisone 10 mg b.i.d. for two weeks and Zithromax continued at 500 mg daily x 3 days. He could be discharged home for outpatient followup in a week to [address]. [address] Beltran for this consultation. Chin Calderon MD JVD/PACHECO /6:45 PM /7:32 AM
[2017-01-10] MEDS ORDERED: AZITHROMYCIN 250 MG TAB PO SCH (09:00)
== END 2017-01-09 17:00 | DRG 192 ==
LOC: PHED 13:33 → PHEDA 15:33 → PHICU 18:15
PROVIDERS: ADMIT Hospitalist; ATTEND Hospitalist
DX: J44.1 Chronic obstructive pulmonary disease with (acute) exacerbation (principal); I95.9 Hypotension, unspecified; I48.91 Unspecified atrial fibrillation; I25.10 Atherosclerotic heart disease of native coronary artery without angina pectoris; F41.9 Anxiety disorder, unspecified; M19.90 Unspecified osteoarthritis, unspecified site; F17.210 Nicotine dependence, cigarettes, uncomplicated; E78.5 Hyperlipidemia, unspecified; F32.9 Major depressive disorder, single episode, unspecified; H91.90 Unspecified hearing loss, unspecified ear; E03.9 Hypothyroidism, unspecified; G89.29 Other chronic pain; Z99.81 Dependence on supplemental oxygen; Z95.5 Presence of coronary angioplasty implant and graft; Z85.46 Personal history of malignant neoplasm of prostate; Z91.19 Patient's noncompliance with other medical treatment and regimen; Z79.01 Long term (current) use of anticoagulants
CPT/HCPCS: 71010; 80048; 80053; 81001; 82550; 83605; 83735; 84100; 84439; 84443; 84480; 84484; 85025; 85610; 85730; 87040; 87804; 93005; 94150; 94640; 94664; 94667; 94668; 96361; 96374; J1644; J1956; J2920; J2930; J7040; J7626; J7644